=== PATIENT | female | born 1980 | race African-American/Black ===

== ENCOUNTER 2016-12-11 12:25 | Inpatient (IN) | payer OTHER ==
[~2016-12-11] VITALS: Ht 170.2 cm; Wt 86.6 kg
[2016-12-11 15:08] LABS: BILIRUBIN,URINE NEGATIVE (NEG); GLUCOSE,URINE NEGATIVE (NEG); NITRITE,URINE NEGATIVE (NEG); PROTEIN,URINE NEGATIVE (NEG-TRACE); UROBILINOGEN,URINE 0.2 mg/dL (0.2 mg/dL)
[2016-12-11 15:17] LABS: BACTERIA,URINE MODERATE /HPF (0-FEW); SQUAMOUS EPITHELIAL CELL,UR MANY /LPF
[2016-12-11 15:29] LABS: BASO % 1 % (0-3); EOS % 2 % (0-3); HEMATOCRIT 24.4 % (36.0-47.0); HEMOGLOBIN 7.3 g/dL (12.0-15.5); LYMPH # 2.3 x10^3/uL (1.0-4.8); LYMPH % 47 % (24-48); MEAN CORPUSCULAR HEMOGLOBIN 18 pg (25-35); MEAN CORPUSCULAR HGB CONC 30 g/dL (31-37); MEAN CORPUSCULAR VOLUME 61 fL (79-100); MONO % 11 % (0-9); NEUT % 39 % (31-73); PLATELET COUNT 351 x10^3/uL (140-400); RED BLOOD COUNT 4.03 x10^6/uL (3.50-5.40); RED CELL DISTRIBUTION WIDTH 19.5 % (11.5-14.5); WHITE BLOOD COUNT 4.8 x10^3/uL (4.0-11.0)
[2016-12-11 15:37] LABS: CALCIUM 8.5 mg/dL (8.5-10.1); CREATININE 0.8 mg/dL (0.6-1.0); GFR 98.2; POTASSIUM 3.9 mmol/L (3.5-5.1)
[2016-12-11 15:43] LABS: ALBUMIN 3.8 g/dL (3.4-5.0); ALBUMIN/GLOBULIN RATIO 0.8 (1.0-1.7); TOTAL BILIRUBIN 0.7 mg/dL (0.2-1.0); TOTAL PROTEIN 8.4 g/dL (6.4-8.2)
[2016-12-11 15:54] LABS: PLT ESTIMATE ADEQUATE (ADEQUATE)
[2016-12-11 15:55] LABS: ANISOCYTOSIS SLIGHT; HYPOCHROMIA MARKED; MICROCYTOSIS MARKED; OVALOCYTES FEW; POIKILOCYTOSIS SLIGHT; TEAR DROP CELLS OCC
--- NOTE | 2016-12-11 16:10 | RAD ---
Pelvic ultrasound, 12/11/2016: History: Vaginal bleeding, abdominal pain Transabdominal and transvaginal scans were obtained. The central uterine echo complex is mildly thickened superiorly, measuring 16 mm in AP diameter on the transvaginal scans. The myometrium demonstrates increased vascularity. No intrauterine gestational sac is seen. The ovaries are of normal size. There are 2 small cysts in the left ovary, the largest of which measures 16 mm. There is blood flow in both ovaries. A small amount of free fluid is noted in the cul-de-sac. This amount of fluid can be on a physiologic basis. IMPRESSION: 1. Mild thickening of the central uterine echo complex with diagnostic considerations including endometrial hyperplasia, endometritis or an endometrial polyp. 2. Small left ovarian cyst. 3. Small amount of free fluid in the pelvis.
--- NOTE | 2016-12-11 16:46 | PHYS DOC ---
Past Medical History Past Medical History: Anemia, Hypertension, IBS Additional Past Medical Histor: PCOS Past Surgical History: Cholecystectomy, Tubal ligation Alcohol Use: Occasionally Additional Information: HEAVY DRINKER ON EVERY WEEKEND Drug Use: None Adult General Chief Complaint Chief Complaint: VAGINAL PROBLEM [facility] HPI Patient is a 36 year old female presents to the emergency department stating that she's been having abdominal pain for the last 3 or 4 days. She states today she's been passing some large amount of clots. She states that she was not sure whether the blood was actually coming from until she had contact the bathroom. Patient states she has a history of anemia and IBS. Patient states that she was seen by her primary care physician and was placed on medications for her IBS which has not helped with the abdominal pain or discomfort. She denies fever, chills, nausea or vomiting. She denies any diarrhea. Denies any urinary symptoms. Review of Systems Review of Systems Constitutional: Denies fever or chills [] Eyes: Denies change in visual acuity, redness, or eye pain [] HENT: Denies nasal congestion or sore throat [] Respiratory: Denies cough or shortness of breath [] Cardiovascular: No additional information not addressed in HPI [] GI: abdominal pain, denies nausea, vomiting, bloody stools or diarrhea [] : Denies dysuria or hematuria. C/o vaginal bleeding [] Musculoskeletal: back pain denies joint pain [] Integument: Denies rash or skin lesions [] Neurologic: Denies headache, focal weakness or sensory changes [] Endocrine: Denies polyuria or polydipsia [] Current Medications Current Medications Current Medications Medications (Trade) Dose Ordered Sig/[facility] Start Time Stop Time Status Last Admin Dose Admin Fentanyl Citrate (Fentanyl 2ml Vial) 50 mcg 1X ONCE 12/11/16 17:00 12/11/16 17:01 DC Ondansetron HCl (Zofran) 4 mg 1X ONCE 12/11/16 17:00 12/11/16 17:01 DC Allergies Allergies Allergies Coded Allergies Type Severity Reaction Last Updated Verified No Known Drug Allergies 03/02/14 No Physical Exam Physical Exam Constitutional: Well developed, well nourished, no acute distress, non-toxic appearance. [] HENT: Normocephalic, atraumatic, bilateral external ears normal, oropharynx moist, no oral exudates, nose normal. [] Eyes: PERRLA, EOMI, conjunctiva normal, no discharge. [] Neck: Normal range of motion, no tenderness, supple, no stridor. [] Cardiovascular:Heart rate regular rhythm, no murmur [] Lungs & Thorax: Bilateral breath sounds clear to auscultation [] Abdomen: Bowel sounds hypoactive, soft, no tenderness, no masses, no pulsatile masses. no rebound tenderness noted, no guarding noted Skin: Warm, dry, no erythema, no rash. [] Back: No tenderness Extremities: No tenderness, no cyanosis, no clubbing, ROM intact, no edema. [] Neurologic: Alert and oriented X 3, normal motor function, normal sensory function, no focal deficits noted. [] Psychologic: Affect normal, judgement normal, mood normal. [] Vaginal exam completed with culture sent. Patient with a minute amount of blood noted in the vaginal vault. Patient did have yellow brownish at discharge. Manual exam with bilateral adnexal tenderness as well as CMT. Exam completed with RN at bedside. Rectal exam completed with a hemoglobin of 7.3, exam completed with RN at bedside Current Patient Data Vital Signs Vital Signs Date Time Temp Pulse Resp B/P (MAP) Pulse Ox O2 Delivery O2 Flow Rate FiO2 12/11/16 13:45 97.8 89 20 145/90 (108) 100 97.8 Lab Values Laboratory Tests Test 12/11/16 12:51 12/11/16 13:40 12/11/16 15:16 12/11/16 16:30 POC Urine HCG, Qualitative Hcg negative (Negative) Urine Collection Type Unknown Urine Color Yellow Urine Clarity Clear Urine pH 7.0 Urine Specific [place] <=1.005 Urine Protein Negative mg/dL (NEG-TRACE) Urine Glucose (UA) Negative mg/dL (NEG) Urine Ketones (Stick) Negative mg/dL (NEG) Urine Blood Large (NEG) Urine Nitrite Negative (NEG) Urine Bilirubin Negative (NEG) Urine Urobilinogen Dipstick 0.2 mg/dL (0.2 mg/dL) Urine Leukocyte Esterase Small (NEG) Urine RBC 1-2 /HPF (0-2) Urine WBC 1-4 /HPF (0-4) Urine Squamous Epithelial Cells Many /LPF Urine Bacteria Moderate /HPF (0-FEW) White Blood Count 4.8 x10^3/uL (4.0-11.0) Red Blood Count 4.03 x10^6/uL (3.50-5.40) Hemoglobin 7.3 g/dL (12.0-15.5) L Hematocrit 24.4 % (36.0-47.0) L Mean Corpuscular Volume 61 fL (79-100) L Mean Corpuscular Hemoglobin 18 pg (25-35) L Mean Corpuscular Hemoglobin Concent 30 g/dL (31-37) L Red Cell Distribution Width 19.5 % (11.5-14.5) H Platelet Count 351 x10^3/uL (140-400) Neutrophils (%) (Auto) 39 % (31-73) Lymphocytes (%) (Auto) 47 % (24-48) Monocytes (%) (Auto) 11 % (0-9) H Eosinophils (%) (Auto) 2 % (0-3) Basophils (%) (Auto) 1 % (0-3) Neutrophils # (Auto) 1.9 x10^3uL (1.8-7.7) Lymphocytes # (Auto) 2.3 x10^3/uL (1.0-4.8) Monocytes # (Auto) 0.5 x10^3/uL (0.0-1.1) Eosinophils # (Auto) 0.1 x10^3/uL (0.0-0.7) Basophils # (Auto) 0.0 x10^3/uL (0.0-0.2) Platelet Estimate Adequate (ADEQUATE) Hypochromasia Marked Poikilocytosis Slight Anisocytosis Slight Microcytosis Marked Tear Drop Cells Occ Ovalocytes Few Sodium Level 141 mmol/L (136-145) Potassium Level 3.9 mmol/L (3.5-5.1) Chloride Level 106 mmol/L (98-107) Carbon Dioxide Level 27 mmol/L (21-32) Anion Gap 8 (6-14) Blood Urea Nitrogen 6 mg/dL (7-20) L Creatinine 0.8 mg/dL (0.6-1.0) Estimated GFR (Cockcroft-Gault) 98.2 BUN/Creatinine Ratio 8 (6-20) Glucose Level 91 mg/dL (70-99) Calcium Level 8.5 mg/dL (8.5-10.1) Total Bilirubin 0.7 mg/dL (0.2-1.0) Aspartate Amino Transferase (AST) 15 U/L (15-37) Alanine Aminotransferase (ALT) 23 U/L (14-59) Alkaline Phosphatase 57 U/L (46-116) Total Protein 8.4 g/dL (6.4-8.2) H Albumin 3.8 g/dL (3.4-5.0) Albumin/Globulin Ratio 0.8 (1.0-1.7) L Stool Occult Blood Positive (NEG) Laboratory Tests 12/11/16 15:16 Laboratory Tests 12/11/16 15:16 Microbiology 12/11/16 Wet Prep - Final, Complete EKG EKG [] Radiology/Procedures Radiology/Procedures [] Course & Med Decision Making Course & Med Decision Making Pertinent Labs and Imaging studies reviewed. (See chart for details) Provided patient with ultrasound report has having endometrial polyps, endometritis. Also provided patient with report that she has bacterial vaginosis , urinary tract infection. Patient was provided for results of her hemoglobin being 7.3. Patient does state she has a history of anemia. Patient does state she's lightheaded and dizzy. Patient is also requiring information provided to her multiple times for her to understand. [address] Lindsey in regards to admission for this patient with abdominal pain, Hgb 7.3 with patient having being light headed, with minimal blood noted in the vaginal area. Fecal occult positive. Patient with positive BV, UTI. Dr Lindsey is aware of ultrasound report and labs with no further recommendations provided. Patient admitted to hospital [] Dragon Disclaimer Dragon Disclaimer This electronic medical record was generated, in whole or in part, using a voice recognition dictation system. Departure Departure Impression: Primary Impression: Abdominal pain Additional Impressions: Anemia UTI (urinary tract infection) Bacterial vaginosis Disposition: ADMITTED INPATIENT Admitting Physician: Yuan Lindsey Condition: STABLE Referrals: KATALINA CHAN (PCP) Problem Qualifiers KT [employer] Dec 11, 2016 16:46
[2016-12-11 16:54] LABS: NEG OBC FOB NEG; POS OBC FOB POS
[2016-12-11] MEDS ORDERED: ONDANSETRON PF 4 MG/2 ML VIAL. IV ONE (17:00)
[2016-12-11] MEDS ORDERED: fentaNYL PF VIAL 100 MCG/2 ML VIAL IV ONE (17:00)
[2016-12-11] MEDS ORDERED: fentaNYL PF VIAL 100 MCG/2 ML VIAL IV PRN (17:15)
[2016-12-11] MEDS ORDERED: ONDANSETRON PF 4 MG/2 ML VIAL. IV PRN ×2 (17:15→18:00)
[2016-12-11] MEDS ORDERED: ACETAMINOPHEN 325 MG TABLET. PO PRN (18:00)
[2016-12-11] MEDS ORDERED: MORPHINE SULFATE 2 MG/ML DISP.SYRIN. IV PRN (18:00)
[2016-12-11] MEDS ORDERED: hydrALAZINE 20 MG/ML VIAL. IVP PRN (18:00)
[2016-12-11] MEDS ORDERED: DOCUSATE SODIUM 100 MG CAPSULE. PO PRN (18:00)
[2016-12-11] MEDS: metroNIDAZOLE 500 MG TABLET PO SCH (18:00)
--- NOTE | 2016-12-11 18:08 | PDOC1 ---
History and Physical Date of Admission Date of Admission 12/11/16 Identification/Chief Complaint Chief Complaint vaginal bleeding vs. rectal bleeding Problems: Source Source: Chart review, Patient History of Present Illness History of Present Illness HPI HPI Patient is a 36 year old female presents to the emergency department for rectal bleeding vs. vaginal bleeding. Pt is very anxious. She said she has been having lower abd pain for a few weeks , usually twice a week, 11/19, not related to eating or BM. She has IBS, for which her PCP prescribed dicyclomine and she denies any Constipation or diarrhea now. TOday, she was on toilet for BM, then notice large red blood clots in the toilet , around the stool. She said never had dark or blood stool before. She then urinated later, also noticed some blood when wipping it. SHe is not sure if the blood comes from vaginal or rectum. SHe was told she has anemia, but frustrated with her PCP who told her that they dont know why she is anemia and asked her to see a specialist. However, she cannot tell me jw gi or ob doc she was supposed to see and has an appt 3 weeks later. She has multiple vaginal either yeast or bacteria infection, c/o that her PCP didnot do PEp smear for 3 years. Her usual menstrual period is heavy, once a month, 7days, usually heavy for 5days. . She denies fever, chills, nausea or vomiting. She denies any diarrhea. Denies any urinary symptoms. Hb 7.3 in ER, pt feels weak, no tachycardia, dizzy or sob or chest pain. wet prep + clue cells. in ER, US pelvis showed : 1. Mild thickening of the central uterine echo complex with diagnostic considerations including endometrial hyperplasia, endometritis or an endometrial polyp. 2. Small left ovarian cyst. 3. Small amount of free fluid in the pelvis. Past Medical History Cardiovascular: HTN Past Surgical History Past Surgical History: Cholecystectomy, Tubal Ligation Family History Family History: Hypertension Social History Smoke: No ALCOHOL: social Drugs: None Current Problem List Problem List Problems Medical Problems: (1) Abdominal pain Status: Acute (2) Anemia Status: Acute (3) Bacterial vaginosis Status: Acute (4) UTI (urinary tract infection) Status: Acute Current Medications Current Medications Current Medications Medications (Trade) Dose Ordered Sig/[facility] Start Time Stop Time Status Last Admin Dose Admin Acetaminophen (Tylenol) 650 mg PRN Q6HRS PRN 12/11/16 18:00 UNV Ceftriaxone Sodium 1 gm/ Sodium Chloride 50 ml @ 100 mls/hr Q24H 12/12/16 18:00 Ceftriaxone Sodium 50 ml @ 100 mls/hr 1X ONCE 12/11/16 17:30 12/11/16 17:59 Docusate Sodium (Colace) 100 mg PRN DAILY PRN 12/11/16 18:00 UNV Fentanyl Citrate (Fentanyl 2ml Vial) 50 mcg PRN Q2HR PRN 12/11/16 17:15 12/12/16 17:14 Hydralazine HCl (Apresoline) 10 mg PRN Q4HRS PRN 12/11/16 18:00 UNV Metronidazole (Flagyl) 500 mg Q12HR 12/11/16 17:30 Morphine Sulfate 2 mg PRN Q2HR PRN 12/11/16 18:00 UNV Ondansetron HCl (Zofran) 4 mg PRN Q6HRS PRN 12/11/16 18:00 UNV Tramadol HCl (Ultram) 50 mg PRN Q6HRS PRN 12/11/16 18:00 UNV Allergies Allergies Allergies Coded Allergies Type Severity Reaction Last Updated Verified No Known Drug Allergies 03/02/14 No ROS Review of System CONSTITUTIONAL: No fever or chills EYES: No recent changes SKIN: No rash or itching CARDIOVASCULAR: No chest pain, syncope, palpitations, or edema RESPIRATORY: No SOB or cough GASTROINTESTINAL: No nausea, vomiting or abdominal pain NEUROLOGICAL: No headaches or weakness ENDOCRINE: No cold or heat intolerance GENITOURINARY: No urgency or frequency of urination MUSCULOSKELETAL: No back pain or joint pain LYMPHATICS: No enlarged lymph nodes PSYCHIATRIC: No anxiety or depression Physical Exam Physical Exam GEN.: No apparent distress. Alert and oriented. HEENT: Head is normocephalic, atraumatic NECK: Supple. LUNGS: Clear to auscultation. HEART: RRR, S1, S2 present. Peripheral pulses intact ABDOMEN: Soft, Positive bowel sounds. lower middle abd mild tenderness EXTREMITIES: Without any cyanosis. NEUROLOGIC: Normal speech, normal tone PSYCHIATRIC: Normal affect, normal mood. SKIN: No ulcerations Vitals Vitals Vital Signs Date Time Temp Pulse Resp B/P (MAP) Pulse Ox O2 Delivery O2 Flow Rate FiO2 12/11/16 13:45 97.8 89 20 145/90 (108) 100 97.8 Labs Labs Laboratory Tests Test 12/11/16 12:51 12/11/16 13:40 12/11/16 15:16 12/11/16 16:30 Bedside Urine HCG, Qualitative Hcg negative (Negative) Urine Collection Type Unknown Urine Color Yellow Urine Clarity Clear Urine pH 7.0 Urine Specific [place] <=1.005 Urine Protein Negative mg/dL (NEG-TRACE) Urine Glucose (UA) Negative mg/dL (NEG) Urine Ketones (Stick) Negative mg/dL (NEG) Urine Blood Large (NEG) Urine Nitrite Negative (NEG) Urine Bilirubin Negative (NEG) Urine Urobilinogen Dipstick 0.2 mg/dL (0.2 mg/dL) Urine Leukocyte Esterase Small (NEG) Urine RBC 1-2 /HPF (0-2) Urine WBC 1-4 /HPF (0-4) Urine Squamous Epithelial Cells Many /LPF Urine Bacteria Moderate /HPF (0-FEW) White Blood Count 4.8 x10^3/uL (4.0-11.0) Red Blood Count 4.03 x10^6/uL (3.50-5.40) Hemoglobin 7.3 g/dL (12.0-15.5) Hematocrit 24.4 % (36.0-47.0) Mean Corpuscular Volume 61 fL (79-100) Mean Corpuscular Hemoglobin 18 pg (25-35) Mean Corpuscular Hemoglobin Concent 30 g/dL (31-37) Red Cell Distribution Width 19.5 % (11.5-14.5) Platelet Count 351 x10^3/uL (140-400) Neutrophils (%) (Auto) 39 % (31-73) Lymphocytes (%) (Auto) 47 % (24-48) Monocytes (%) (Auto) 11 % (0-9) Eosinophils (%) (Auto) 2 % (0-3) Basophils (%) (Auto) 1 % (0-3) Neutrophils # (Auto) 1.9 x10^3uL (1.8-7.7) Lymphocytes # (Auto) 2.3 x10^3/uL (1.0-4.8) Monocytes # (Auto) 0.5 x10^3/uL (0.0-1.1) Eosinophils # (Auto) 0.1 x10^3/uL (0.0-0.7) Basophils # (Auto) 0.0 x10^3/uL (0.0-0.2) Platelet Estimate Adequate (ADEQUATE) Hypochromasia Marked Poikilocytosis Slight Anisocytosis Slight Microcytosis Marked Tear Drop Cells Occ Ovalocytes Few Sodium Level 141 mmol/L (136-145) Potassium Level 3.9 mmol/L (3.5-5.1) Chloride Level 106 mmol/L (98-107) Carbon Dioxide Level 27 mmol/L (21-32) Anion Gap 8 (6-14) Blood Urea Nitrogen 6 mg/dL (7-20) Creatinine 0.8 mg/dL (0.6-1.0) Estimated GFR (Cockcroft-Gault) 98.2 BUN/Creatinine Ratio 8 (6-20) Glucose Level 91 mg/dL (70-99) Calcium Level 8.5 mg/dL (8.5-10.1) Total Bilirubin 0.7 mg/dL (0.2-1.0) Aspartate Amino Transf (AST/SGOT) 15 U/L (15-37) Alanine Aminotransferase (ALT/SGPT) 23 U/L (14-59) Alkaline Phosphatase 57 U/L (46-116) Total Protein 8.4 g/dL (6.4-8.2) Albumin 3.8 g/dL (3.4-5.0) Albumin/Globulin Ratio 0.8 (1.0-1.7) Stool Occult Blood Positive (NEG) Laboratory Tests Test 12/11/16 12:51 12/11/16 13:40 12/11/16 15:16 12/11/16 16:30 Bedside Urine HCG, Qualitative Hcg negative (Negative) Urine Collection Type Unknown Urine Color Yellow Urine Clarity Clear Urine pH 7.0 Urine Specific [place] <=1.005 Urine Protein Negative mg/dL (NEG-TRACE) Urine Glucose (UA) Negative mg/dL (NEG) Urine Ketones (Stick) Negative mg/dL (NEG) Urine Blood Large (NEG) Urine Nitrite Negative (NEG) Urine Bilirubin Negative (NEG) Urine Urobilinogen Dipstick 0.2 mg/dL (0.2 mg/dL) Urine Leukocyte Esterase Small (NEG) Urine RBC 1-2 /HPF (0-2) Urine WBC 1-4 /HPF (0-4) Urine Squamous Epithelial Cells Many /LPF Urine Bacteria Moderate /HPF (0-FEW) White Blood Count 4.8 x10^3/uL (4.0-11.0) Red Blood Count 4.03 x10^6/uL (3.50-5.40) Hemoglobin 7.3 g/dL (12.0-15.5) Hematocrit 24.4 % (36.0-47.0) Mean Corpuscular Volume 61 fL (79-100) Mean Corpuscular Hemoglobin 18 pg (25-35) Mean Corpuscular Hemoglobin Concent 30 g/dL (31-37) Red Cell Distribution Width 19.5 % (11.5-14.5) Platelet Count 351 x10^3/uL (140-400) Neutrophils (%) (Auto) 39 % (31-73) Lymphocytes (%) (Auto) 47 % (24-48) Monocytes (%) (Auto) 11 % (0-9) Eosinophils (%) (Auto) 2 % (0-3) Basophils (%) (Auto) 1 % (0-3) Neutrophils # (Auto) 1.9 x10^3uL (1.8-7.7) Lymphocytes # (Auto) 2.3 x10^3/uL (1.0-4.8) Monocytes # (Auto) 0.5 x10^3/uL (0.0-1.1) Eosinophils # (Auto) 0.1 x10^3/uL (0.0-0.7) Basophils # (Auto) 0.0 x10^3/uL (0.0-0.2) Platelet Estimate Adequate (ADEQUATE) Hypochromasia Marked Poikilocytosis Slight Anisocytosis Slight Microcytosis Marked Tear Drop Cells Occ Ovalocytes Few Sodium Level 141 mmol/L (136-145) Potassium Level 3.9 mmol/L (3.5-5.1) Chloride Level 106 mmol/L (98-107) Carbon Dioxide Level 27 mmol/L (21-32) Anion Gap 8 (6-14) Blood Urea Nitrogen 6 mg/dL (7-20) Creatinine 0.8 mg/dL (0.6-1.0) Estimated GFR (Cockcroft-Gault) 98.2 BUN/Creatinine Ratio 8 (6-20) Glucose Level 91 mg/dL (70-99) Calcium Level 8.5 mg/dL (8.5-10.1) Total Bilirubin 0.7 mg/dL (0.2-1.0) Aspartate Amino Transf (AST/SGOT) 15 U/L (15-37) Alanine Aminotransferase (ALT/SGPT) 23 U/L (14-59) Alkaline Phosphatase 57 U/L (46-116) Total Protein 8.4 g/dL (6.4-8.2) Albumin 3.8 g/dL (3.4-5.0) Albumin/Globulin Ratio 0.8 (1.0-1.7) Stool Occult Blood Positive (NEG) VTE Prophylaxis Ordered VTE Prophylaxis Devices: Yes VTE Pharmacological Prophylaxi: No Assessment/Plan Assessment/Plan anemia, likely chronic from ob source lower abd pain, likely 2/2 ob source, bacterial vaginitis h/o yeast and bacterial vaginitis IBS, chronic htn US showed Mild thickening of the central uterine with ?endometrial hyperplasia , endometritis or an endometrial polyp. plan; ob consult anemia work up need home meds flagyl bid x7ds on ceftriaxone for now for possible UTI, fu ucx will do abd/pelvis CT w contrast pain control labs tmr gi consult ITZ REYES MD Dec 11, 2016 18:08
[2016-12-11] MEDS ORDERED: IOHEXOL 240 MG/ML 50ML VIAL. PO ONE (19:30)
[2016-12-11] MEDS ORDERED: IOHEXOL 300 MG/ML 75 ML VIAL IV ONE (19:30)
--- NOTE | 2016-12-11 19:45 | RAD ---
CT abdomen and pelvis with contrast History: Abdominal pain for one month, possible rectal bleeding Technique: After the administration of oral and intravenous contrast, CT imaging was performed of the abdomen and pelvis. Multiplanar images are reviewed. Exposure: One or more of the following individualized dose reduction techniques were utilized for this examination: 1. Automated exposure control 2. Adjustment of the mA and/or kV according to patient size 3. Use of iterative reconstruction technique. Comparison: None Findings: There is no significant abnormality of the visualized lung bases. There is no significant abnormality of the liver, spleen, pancreas, adrenal glands. Both kidneys enhance without hydronephrosis, mild right pelviectasis. There is likely small 3 mm nonobstructive left renal calculus. There has been cholecystectomy. There is no significant inflammatory change adjacent to the bowel. There is no evidence of bowel obstruction, free fluid, or free air. Normal appendix is visualized. There is some retained stool in the rectum. There are likely phleboliths in the left pelvis. There is likely left adnexal cyst up to 1.5 cm. Impression: 1. No significant acute abnormality is identified. There is retained stool in the rectum. There is probable small left adnexal cyst. 2. There is likely small nonobstructive left renal calculus Electronically signed by: Jose Armendariz MD (12/11/2016 7:41 PM) [facility]
[2016-12-11 20:31] VITALS: BP 147/81
[2016-12-12] VITALS (14 sets, daily range): BP systolic 116–136; BP diastolic 66–85
[2016-12-12] MEDS: traMADol 50 MG TABLET PO PRN ×2 (01:08→08:21)
--- NOTE | 2016-12-12 03:27 | ACF ---
Admission Forms Criteria URINARY COMPLICATIONS Clinical Indications for Inpatient Care (Place 'X' for any and all applicable criteria): Ongoing inpatient care may be indicated for urinary complications with ANY ONE of the following: [X]I. Urinary tract infection requiring inpatient care as indicated by ANY ONE of the following(8)(19)(20): [ ]a) Severe symptoms (eg, high fever, severe pain) [ ]b) Vomiting or dehydration requiring ongoing inpatient care [X]c) IV antibiotic needs that cannot be managed at lower level of care [ ]d) Hemodynamic instability [ ]e) Obstruction of collecting system by stone or tumor [ ]II. Urinary retention requiring drainage or surgery (3)(4)(5)(17)(18) [ ]III. Renal failure (Use Renal Failure Criteria for further information.) [ ]IV. Oliguria(30) [ ]V. Post obstructive diuresis requiring close monitoring of urine output and intravenous compensation for excessive fluid losses(33) Extended stay beyond goal length of stay for primary condition may be needed until ALL of the following are present(3)(4)(5)(8): [ ]a) Renal function (creatinine) at baseline, or daily decreases in creatinine consistent with renal function return [ ]b) Voiding adequately or with urinary catheter or percutaneous suprapubic tube and management regimen in place that is performable at lower level of care. [ ]c) Urine output adequate [ ]d) Fever absent or resolving [ ]e) Infection absent or treatable at next level of care The original [employer] content created by [employer] has been revised. The portions of the content which have been revised are identified through the use of italic text or in bold, and [facility] has neither reviewed nor approved the modified material. All other unmodified content is copyright [employer] [facility] [employer] Please see references footnoted in the original [employer] [facility] [employer] edition 2016 Admission Criteria Met?: Yes ASYA BENNETT Dec 12, 2016 03:27
[2016-12-12 04:31] LABS: BASO % 1 % (0-3); EOS % 6 % (0-3); HEMATOCRIT 23.3 % (36.0-47.0); LYMPH # 2.6 x10^3/uL (1.0-4.8); LYMPH % 47 % (24-48); MEAN CORPUSCULAR HEMOGLOBIN 18 pg (25-35); MEAN CORPUSCULAR HGB CONC 29 g/dL (31-37); MEAN CORPUSCULAR VOLUME 62 fL (79-100); MONO % 13 % (0-9); NEUT % 34 % (31-73); PLATELET COUNT 315 x10^3/uL (140-400); RED BLOOD COUNT 3.77 x10^6/uL (3.50-5.40); RED CELL DISTRIBUTION WIDTH 19.5 % (11.5-14.5); WHITE BLOOD COUNT 5.4 x10^3/uL (4.0-11.0)
[2016-12-12 04:37] LABS: HEMOGLOBIN 6.8 g/dL (12.0-15.5)
[2016-12-12 04:47] LABS: CALCIUM 8.2 mg/dL (8.5-10.1); CREATININE 0.9 mg/dL (0.6-1.0); GFR 85.7; POTASSIUM 3.6 mmol/L (3.5-5.1)
[2016-12-12 05:04] LABS: % SAT IRON 3 % (15-34); IRON,SERUM 13 ug/dL (50-170)
[2016-12-12] MEDS: metroNIDAZOLE 500 MG TABLET PO SCH (08:22)
--- NOTE | 2016-12-12 09:55 | PDOC ---
PROGRESS NOTES Chief Complaint Chief Complaint Vaginal bleed ASSESSMENT AND PLAN: 1. Vaginal bleed: poss endometriosis. (US: mild thickening of the central uterine with ?endometrial hyperplasia, endometritis or an endometrial polyp). DIRECTOR MOTION PICTURE consult, CT a/p 2. IBS: chronic. on dicyclomine. 3. Pelvic pain: likely 2/2 DIRECTOR MOTION PICTURE source. stop IV narcotics. tramadol, percocet PRN 4. Bacterial vaginosis: hx of yeast and bacterial vaginitis, recurrent. flagyl x7 days 5. Anemia: severe microcytic, labs c/w iron deficiency. suspect 2/2 menorrhagia (on her period currently). IV iron ordered. no need for transfusion 6. HTN: well controlled. continue home meds. monitor 7. "dirty" urine collection: stop Ceftriax History of Present Illness History of Present Illness anxious about ongoing issues. Vitals Vitals Vital Signs Date Time Temp Pulse Resp B/P (MAP) Pulse Ox O2 Delivery O2 Flow Rate FiO2 12/12/16 09:22 Room Air 12/12/16 09:15 98.3 83 18 116/66 98.3 12/12/16 05:18 94 Physical Exam General: Alert, Oriented X3, Cooperative, No acute distress Heart: Regular rate, Other (2/6 SANDY) Lungs: Clear Abdomen: Normal bowel sounds, Soft, Other (TTP RLQ) Extremities: No edema Skin: No rashes Labs LABS Laboratory Tests Test 12/11/16 12:51 12/11/16 13:40 12/11/16 15:16 12/11/16 16:30 Bedside Urine HCG, Qualitative Hcg negative (Negative) Urine Collection Type Unknown Urine Color Yellow Urine Clarity Clear Urine pH 7.0 Urine Specific [place] <=1.005 Urine Protein Negative mg/dL (NEG-TRACE) Urine Glucose (UA) Negative mg/dL (NEG) Urine Ketones (Stick) Negative mg/dL (NEG) Urine Blood Large (NEG) Urine Nitrite Negative (NEG) Urine Bilirubin Negative (NEG) Urine Urobilinogen Dipstick 0.2 mg/dL (0.2 mg/dL) Urine Leukocyte Esterase Small (NEG) Urine RBC 1-2 /HPF (0-2) Urine WBC 1-4 /HPF (0-4) Urine Squamous Epithelial Cells Many /LPF Urine Bacteria Moderate /HPF (0-FEW) White Blood Count 4.8 x10^3/uL (4.0-11.0) Red Blood Count 4.03 x10^6/uL (3.50-5.40) Hemoglobin 7.3 g/dL (12.0-15.5) Hematocrit 24.4 % (36.0-47.0) Mean Corpuscular Volume 61 fL (79-100) Mean Corpuscular Hemoglobin 18 pg (25-35) Mean Corpuscular Hemoglobin Concent 30 g/dL (31-37) Red Cell Distribution Width 19.5 % (11.5-14.5) Platelet Count 351 x10^3/uL (140-400) Neutrophils (%) (Auto) 39 % (31-73) Lymphocytes (%) (Auto) 47 % (24-48) Monocytes (%) (Auto) 11 % (0-9) Eosinophils (%) (Auto) 2 % (0-3) Basophils (%) (Auto) 1 % (0-3) Neutrophils # (Auto) 1.9 x10^3uL (1.8-7.7) Lymphocytes # (Auto) 2.3 x10^3/uL (1.0-4.8) Monocytes # (Auto) 0.5 x10^3/uL (0.0-1.1) Eosinophils # (Auto) 0.1 x10^3/uL (0.0-0.7) Basophils # (Auto) 0.0 x10^3/uL (0.0-0.2) Platelet Estimate Adequate (ADEQUATE) Hypochromasia Marked Poikilocytosis Slight Anisocytosis Slight Microcytosis Marked Tear Drop Cells Occ Ovalocytes Few Sodium Level 141 mmol/L (136-145) Potassium Level 3.9 mmol/L (3.5-5.1) Chloride Level 106 mmol/L (98-107) Carbon Dioxide Level 27 mmol/L (21-32) Anion Gap 8 (6-14) Blood Urea Nitrogen 6 mg/dL (7-20) Creatinine 0.8 mg/dL (0.6-1.0) Estimated GFR (Cockcroft-Gault) 98.2 BUN/Creatinine Ratio 8 (6-20) Glucose Level 91 mg/dL (70-99) Calcium Level 8.5 mg/dL (8.5-10.1) Total Bilirubin 0.7 mg/dL (0.2-1.0) Aspartate Amino Transf (AST/SGOT) 15 U/L (15-37) Alanine Aminotransferase (ALT/SGPT) 23 U/L (14-59) Alkaline Phosphatase 57 U/L (46-116) Total Protein 8.4 g/dL (6.4-8.2) Albumin 3.8 g/dL (3.4-5.0) Albumin/Globulin Ratio 0.8 (1.0-1.7) Stool Occult Blood Positive (NEG) Test 12/12/16 03:15 White Blood Count 5.4 x10^3/uL (4.0-11.0) Red Blood Count 3.77 x10^6/uL (3.50-5.40) Hemoglobin 6.8 g/dL (12.0-15.5) Hematocrit 23.3 % (36.0-47.0) Mean Corpuscular Volume 62 fL (79-100) Mean Corpuscular Hemoglobin 18 pg (25-35) Mean Corpuscular Hemoglobin Concent 29 g/dL (31-37) Red Cell Distribution Width 19.5 % (11.5-14.5) Platelet Count 315 x10^3/uL (140-400) Neutrophils (%) (Auto) 34 % (31-73) Lymphocytes (%) (Auto) 47 % (24-48) Monocytes (%) (Auto) 13 % (0-9) Eosinophils (%) (Auto) 6 % (0-3) Basophils (%) (Auto) 1 % (0-3) Neutrophils # (Auto) 1.9 x10^3uL (1.8-7.7) Lymphocytes # (Auto) 2.6 x10^3/uL (1.0-4.8) Monocytes # (Auto) 0.7 x10^3/uL (0.0-1.1) Eosinophils # (Auto) 0.3 x10^3/uL (0.0-0.7) Basophils # (Auto) 0.0 x10^3/uL (0.0-0.2) Sodium Level 140 mmol/L (136-145) Potassium Level 3.6 mmol/L (3.5-5.1) Chloride Level 106 mmol/L (98-107) Carbon Dioxide Level 27 mmol/L (21-32) Anion Gap 7 (6-14) Blood Urea Nitrogen 7 mg/dL (7-20) Creatinine 0.9 mg/dL (0.6-1.0) Estimated GFR (Cockcroft-Gault) 85.7 Glucose Level 89 mg/dL (70-99) Calcium Level 8.2 mg/dL (8.5-10.1) Iron Level 13 ug/dL (50-170) Total Iron Binding Capacity 434 ug/dL (250-450) Iron Saturation 3 % (15-34) Ferritin 4 ng/mL (8-252) YOVANI MUELLER MD Dec 12, 2016 09:55
[2016-12-12] MEDS ORDERED: DICYCLOMINE HCL 10 MG CAPSULE PO PRN (11:00)
[2016-12-12] MEDS ORDERED: IRON SUCROSE COMPLEX 500 MG in IV NORMAL SALINE 250ML 250 ML IV ONE (11:00)
[2016-12-12 11:18] LABS: FOLATE 7.43 ng/ml (3.2-20.0)
[2016-12-12] MEDS ORDERED: amLODIPine BESYLATE 5 MG TABLET PO SCH (11:30)
[2016-12-12] MEDS: oxyCODONE/APAP 5/325 1 TAB TABLET PO PRN ×2 (11:31→18:05)
--- NOTE | 2016-12-12 13:18 | PDOC2 ---
CONSULT Date of Consult Date of Consult DATE: 12/12/16 TIME: 13:10 Reason for Consult Reason for Consult: vaginal bleeding Referring Physician Referring Physician: Dr. Lindsey Identification/Chief Complaint Chief Complaint fatigue and vaginal bleeding. Problems: History of Present Illness Reason for Visit: 36 y/o presented to ED with c/o heavy vaginal bleeding and fatigue. She reports h/o heavy menses > 10 years. She has h/o BTL and Cholecystectomy. This is first time she has been hospitalized for severe bleeding. Past Medical History Cardiovascular: HTN Past Surgical History Past Surgical History: Cholecystectomy, Tubal Ligation Family History Family History: Hypertension Social History No ALCOHOL: social Drugs: None Current Problem List Problem List Problems Medical Problems: (1) Abdominal pain Status: Acute (2) Anemia Status: Acute (3) Bacterial vaginosis Status: Acute (4) UTI (urinary tract infection) Status: Acute Current Medications Current Medications Current Medications Fentanyl Citrate (Fentanyl 2ml Vial) 50 mcg 1X ONCE IV Last administered on 17:13; Start 12/11/16 at 17:00; Stop 12/11/16 at 17:01; Status DC Ondansetron HCl (Zofran) 4 mg 1X ONCE IV Last administered on 12/11/16 17:12; Start 12/11/16 at 17:00; Stop 12/11/16 at 17:01; Status DC Ceftriaxone Sodium 1 gm/ Sodium Chloride 50 ml @ 100 mls/hr Q24H IV ; Start 12/12/16 at 18:00; Stop 12/12/16 at 18:00; Status DC Metronidazole (Flagyl) 500 mg Q12HR PO Last administered on 12/12/16 08:22; Start 12/11/16 at 17:30 Ondansetron HCl (Zofran) 4 mg PRN Q8HRS PRN IV NAUSEA/VOMITING; Start 12/11/16 at 17:15; Stop 12/12/16 at 17:14 Fentanyl Citrate (Fentanyl 2ml Vial) 50 mcg PRN Q2HR PRN IV PAIN Last administered on 12/11/16 20:55; Start 12/11/16 at 17:15; Stop 12/12/16 at 09:51; Status DC Ceftriaxone Sodium 50 ml @ 100 mls/hr 1X ONCE IV Last administered on 17:57; Start 12/11/16 at 17:30; Stop 12/11/16 at 17:59; Status DC Acetaminophen (Tylenol) 650 mg PRN Q6HRS PRN PO FEVER Last administered on 01:07; Start 12/11/16 at 18:00 Ondansetron HCl (Zofran) 4 mg PRN Q6HRS PRN IV NAUSEA/VOMITING; Start 12/11/16 at 18:00 Morphine Sulfate 2 mg PRN Q2HR PRN IV PAIN; Start 12/11/16 at 18:00; Stop at 09:51; Status DC Tramadol HCl (Ultram) 50 mg PRN Q6HRS PRN PO PAIN Last administered on 08:21; Start 12/11/16 at 18:00 Hydralazine HCl (Apresoline) 10 mg PRN Q4HRS PRN IVP ELEVATED BP, SEE COMMENTS ; Start 12/11/16 at 18:00 Docusate Sodium (Colace) 100 mg PRN DAILY PRN PO CONSTIPATION; Start 12/11/16 at 18:00 Iohexol (Omnipaque 300 Mg/ml) 75 ml 1X ONCE IV Last administered on 12/11/16 19:31; Start 12/11/16 at 19:30; Stop 12/11/16 at 19:31; Status DC Iohexol (Omnipaque 240 Mg/ml) 50 ml 1X ONCE PO Last administered on 12/11/16 19:32; Start 12/11/16 at 19:30; Stop 12/11/16 at 19:31; Status DC Oxycodone/ Acetaminophen (Percocet 5/325) 1 tab PRN Q4HRS PRN PO PAIN Last administered on 12/12/16 11:31; Start 12/12/16 at 10:00 Iron Sucrose 500 mg/Sodium Chloride 275 ml @ 78.571 mls/ hr 1X ONCE IV Last administered on 12/12/16 11:30; Start 12/12/16 at 11:00; Stop 12/12/16 at 14:29 Amlodipine Besylate (Norvasc) 5 mg DAILY PO ; Start 12/12/16 at 11:30 Dicyclomine HCl (Bentyl) 10 mg PRN TID PRN PO abd pain; Start 12/12/16 at 11:00 Allergies Allergies: Coded Allergies: No Known Drug Allergies (Unverified , 03/02/14) ROS General: YES: Fatigue, No: Chills, Night Sweats, Malaise, Appetite, Other PSYCHOLOGICAL ROS: No: Anxiety, Behavioral Disorder, Concentration difficultie , Decreased libido, Depression, Disorientation, Hallucinations, Hostility, Irritablity, Memory difficulties, Mood Swings, Obsessive thoughts, Physical abuse, Sexual abuse, Sleep disturbances, Suicidal ideation, Other Eyes: No Blurry vision, No Decreased vision, No Double vision, No Dry eyes, No Excessive tearing, No Eye Pain, No Itchy Eyes, No Loss of vision, No Photophobia , No Scotomata, No Uses contacts, No Uses glasses, No Other HEENT: YES: Heacaches, No: Visual Changes, Hearing change, Nasal congestion, Nasal discharge, Oral lesions, Sinus pain, Sore Throat, Epistaxis, Sneezing, Snoring, Tinnitus, Vertigo, Vocal changes, Other ALLERGY AND IMMUNOLOGY: No: Hives, Insect Bite Sensitivity, Itchy/Watery Eyes, Nasal Congestion, Post Nasal Drip, Seasonal Allergies, Other Hematological and Lymphatic: No: Bleeding Problems, Blood Clots, Blood Transfusions, Brusing, Night Sweats, Pallor, Swollen Lymph Nodes, Other ENDOCRINE: No: Breast Changes, Galactorrhea, Hair Pattern Changes, Hot Flashes , Malaise/lethargy, Mood Swings, Palpitations, Polydipsia/polyuria, Skin Changes , Temperature Intolerance, Unexpected Weight Changes, Other Breast: No New/Changing Breast Lumps, No Nipple changes, No Nipple discharge, No Other Respiratory: No: Cough, Hemoptysis, Orthopnea, Pleuritic Pain, Shortness of breath, SOB with excertion, Sputum Changes, Stridor, Tachypnea, Wheezing, Other Cardiovascular: No Chest Pain, No Palpitations, No Orthopnea, No Paroxysmal Noc. Dyspnea, No Edema, No Lt Headedness, No Other Gastrointestinal: Yes Abdominal Pain, No Nausea, No Vomiting, No Diarrhea, No Constipation, No Melena, No Hematochezia, No Other Genitourinary: No Dysuria, No Frequency, No Incontinence, No Hematuria, No Retention, No Discharge, No Urgency, No Pain, No Flank Pain, No Other, No , No , No , No , No , No , No Musculoskeletal: No Gait Disturbance, No Joint Pain, No Joint Stiffness, No Joint Swelling, No Muscle Pain, No Muscular Weakness, No Pain In:, No Swelling In:, No Other Neurological: No Behavorial Changes, No Bowel/Bladder ControlChng, No Confusion , No Dizziness, No Gait Disturbance, No Headaches, No Impaired Coord/balance, No Memory Loss, No Numbness/Tingling, No Seizures, No Speech Problems, No Tremors, No Visual Changes, No Weakness, No Other Physical Exam General: Alert, Oriented X3, Cooperative HEENT: Atraumatic Lungs: Clear to auscultation Heart: Regular rate Abdomen: Normal bowel sounds, Soft, No masses Psych/Mental Status: Mental status NL MUSCULOSKELETAL: No joint tenderness Vitals VITALS Vital Signs Date Time Temp Pulse Resp B/P (MAP) Pulse Ox O2 Delivery O2 Flow Rate FiO2 12/12/16 11:31 18 12/12/16 10:15 98.0 72 120/70 98.0 12/12/16 09:22 Room Air 12/12/16 05:18 94 Labs Labs Laboratory Tests Test 12/11/16 12:51 12/11/16 13:40 12/11/16 15:16 12/11/16 16:30 Bedside Urine HCG, Qualitative Hcg negative (Negative) Urine Collection Type Unknown Urine Color Yellow Urine Clarity Clear Urine pH 7.0 Urine Specific [place] <=1.005 Urine Protein Negative mg/dL (NEG-TRACE) Urine Glucose (UA) Negative mg/dL (NEG) Urine Ketones (Stick) Negative mg/dL (NEG) Urine Blood Large (NEG) Urine Nitrite Negative (NEG) Urine Bilirubin Negative (NEG) Urine Urobilinogen Dipstick 0.2 mg/dL (0.2 mg/dL) Urine Leukocyte Esterase Small (NEG) Urine RBC 1-2 /HPF (0-2) Urine WBC 1-4 /HPF (0-4) Urine Squamous Epithelial Cells Many /LPF Urine Bacteria Moderate /HPF (0-FEW) White Blood Count 4.8 x10^3/uL (4.0-11.0) Red Blood Count 4.03 x10^6/uL (3.50-5.40) Hemoglobin 7.3 g/dL (12.0-15.5) Hematocrit 24.4 % (36.0-47.0) Mean Corpuscular Volume 61 fL (79-100) Mean Corpuscular Hemoglobin 18 pg (25-35) Mean Corpuscular Hemoglobin Concent 30 g/dL (31-37) Red Cell Distribution Width 19.5 % (11.5-14.5) Platelet Count 351 x10^3/uL (140-400) Neutrophils (%) (Auto) 39 % (31-73) Lymphocytes (%) (Auto) 47 % (24-48) Monocytes (%) (Auto) 11 % (0-9) Eosinophils (%) (Auto) 2 % (0-3) Basophils (%) (Auto) 1 % (0-3) Neutrophils # (Auto) 1.9 x10^3uL (1.8-7.7) Lymphocytes # (Auto) 2.3 x10^3/uL (1.0-4.8) Monocytes # (Auto) 0.5 x10^3/uL (0.0-1.1) Eosinophils # (Auto) 0.1 x10^3/uL (0.0-0.7) Basophils # (Auto) 0.0 x10^3/uL (0.0-0.2) Platelet Estimate Adequate (ADEQUATE) Hypochromasia Marked Poikilocytosis Slight Anisocytosis Slight Microcytosis Marked Tear Drop Cells Occ Ovalocytes Few Sodium Level 141 mmol/L (136-145) Potassium Level 3.9 mmol/L (3.5-5.1) Chloride Level 106 mmol/L (98-107) Carbon Dioxide Level 27 mmol/L (21-32) Anion Gap 8 (6-14) Blood Urea Nitrogen 6 mg/dL (7-20) Creatinine 0.8 mg/dL (0.6-1.0) Estimated GFR (Cockcroft-Gault) 98.2 BUN/Creatinine Ratio 8 (6-20) Glucose Level 91 mg/dL (70-99) Calcium Level 8.5 mg/dL (8.5-10.1) Total Bilirubin 0.7 mg/dL (0.2-1.0) Aspartate Amino Transf (AST/SGOT) 15 U/L (15-37) Alanine Aminotransferase (ALT/SGPT) 23 U/L (14-59) Alkaline Phosphatase 57 U/L (46-116) Total Protein 8.4 g/dL (6.4-8.2) Albumin 3.8 g/dL (3.4-5.0) Albumin/Globulin Ratio 0.8 (1.0-1.7) Stool Occult Blood Positive (NEG) Test 12/12/16 03:15 White Blood Count 5.4 x10^3/uL (4.0-11.0) Red Blood Count 3.77 x10^6/uL (3.50-5.40) Hemoglobin 6.8 g/dL (12.0-15.5) Hematocrit 23.3 % (36.0-47.0) Mean Corpuscular Volume 62 fL (79-100) Mean Corpuscular Hemoglobin 18 pg (25-35) Mean Corpuscular Hemoglobin Concent 29 g/dL (31-37) Red Cell Distribution Width 19.5 % (11.5-14.5) Platelet Count 315 x10^3/uL (140-400) Neutrophils (%) (Auto) 34 % (31-73) Lymphocytes (%) (Auto) 47 % (24-48) Monocytes (%) (Auto) 13 % (0-9) Eosinophils (%) (Auto) 6 % (0-3) Basophils (%) (Auto) 1 % (0-3) Neutrophils # (Auto) 1.9 x10^3uL (1.8-7.7) Lymphocytes # (Auto) 2.6 x10^3/uL (1.0-4.8) Monocytes # (Auto) 0.7 x10^3/uL (0.0-1.1) Eosinophils # (Auto) 0.3 x10^3/uL (0.0-0.7) Basophils # (Auto) 0.0 x10^3/uL (0.0-0.2) Sodium Level 140 mmol/L (136-145) Potassium Level 3.6 mmol/L (3.5-5.1) Chloride Level 106 mmol/L (98-107) Carbon Dioxide Level 27 mmol/L (21-32) Anion Gap 7 (6-14) Blood Urea Nitrogen 7 mg/dL (7-20) Creatinine 0.9 mg/dL (0.6-1.0) Estimated GFR (Cockcroft-Gault) 85.7 Glucose Level 89 mg/dL (70-99) Calcium Level 8.2 mg/dL (8.5-10.1) Iron Level 13 ug/dL (50-170) Total Iron Binding Capacity 434 ug/dL (250-450) Iron Saturation 3 % (15-34) Ferritin 4 ng/mL (8-252) Vitamin B12 Level 381 pg/mL (247-911) Serum Folate 7.43 ng/ml (3.2-20.0) Laboratory Tests Test 12/11/16 13:40 12/11/16 15:16 12/11/16 16:30 12/12/16 03:15 Urine Collection Type Unknown Urine Color Yellow Urine Clarity Clear Urine pH 7.0 Urine Specific [place] <=1.005 Urine Protein Negative mg/dL (NEG-TRACE) Urine Glucose (UA) Negative mg/dL (NEG) Urine Ketones (Stick) Negative mg/dL (NEG) Urine Blood Large (NEG) Urine Nitrite Negative (NEG) Urine Bilirubin Negative (NEG) Urine Urobilinogen Dipstick 0.2 mg/dL (0.2 mg/dL) Urine Leukocyte Esterase Small (NEG) Urine RBC 1-2 /HPF (0-2) Urine WBC 1-4 /HPF (0-4) Urine Squamous Epithelial Cells Many /LPF Urine Bacteria Moderate /HPF (0-FEW) White Blood Count 4.8 x10^3/uL (4.0-11.0) 5.4 x10^3/uL (4.0-11.0) Red Blood Count 4.03 x10^6/uL (3.50-5.40) 3.77 x10^6/uL (3.50-5.40) Hemoglobin 7.3 g/dL (12.0-15.5) 6.8 g/dL (12.0-15.5) Hematocrit 24.4 % (36.0-47.0) 23.3 % (36.0-47.0) Mean Corpuscular Volume 61 fL (79-100) 62 fL (79-100) Mean Corpuscular Hemoglobin 18 pg (25-35) 18 pg (25-35) Mean Corpuscular Hemoglobin Concent 30 g/dL (31-37) 29 g/dL (31-37) Red Cell Distribution Width 19.5 % (11.5-14.5) 19.5 % (11.5-14.5) Platelet Count 351 x10^3/uL (140-400) 315 x10^3/uL (140-400) Neutrophils (%) (Auto) 39 % (31-73) 34 % (31-73) Lymphocytes (%) (Auto) 47 % (24-48) 47 % (24-48) Monocytes (%) (Auto) 11 % (0-9) 13 % (0-9) Eosinophils (%) (Auto) 2 % (0-3) 6 % (0-3) Basophils (%) (Auto) 1 % (0-3) 1 % (0-3) Neutrophils # (Auto) 1.9 x10^3uL (1.8-7.7) 1.9 x10^3uL (1.8-7.7) Lymphocytes # (Auto) 2.3 x10^3/uL (1.0-4.8) 2.6 x10^3/uL (1.0-4.8) Monocytes # (Auto) 0.5 x10^3/uL (0.0-1.1) 0.7 x10^3/uL (0.0-1.1) Eosinophils # (Auto) 0.1 x10^3/uL (0.0-0.7) 0.3 x10^3/uL (0.0-0.7) Basophils # (Auto) 0.0 x10^3/uL (0.0-0.2) 0.0 x10^3/uL (0.0-0.2) Platelet Estimate Adequate (ADEQUATE) Hypochromasia Marked Poikilocytosis Slight Anisocytosis Slight Microcytosis Marked Tear Drop Cells Occ Ovalocytes Few Sodium Level 141 mmol/L (136-145) 140 mmol/L (136-145) Potassium Level 3.9 mmol/L (3.5-5.1) 3.6 mmol/L (3.5-5.1) Chloride Level 106 mmol/L (98-107) 106 mmol/L (98-107) Carbon Dioxide Level 27 mmol/L (21-32) 27 mmol/L (21-32) Anion Gap 8 (6-14) 7 (6-14) Blood Urea Nitrogen 6 mg/dL (7-20) 7 mg/dL (7-20) Creatinine 0.8 mg/dL (0.6-1.0) 0.9 mg/dL (0.6-1.0) Estimated GFR (Cockcroft-Gault) 98.2 85.7 BUN/Creatinine Ratio 8 (6-20) Glucose Level 91 mg/dL (70-99) 89 mg/dL (70-99) Calcium Level 8.5 mg/dL (8.5-10.1) 8.2 mg/dL (8.5-10.1) Total Bilirubin 0.7 mg/dL (0.2-1.0) Aspartate Amino Transf (AST/SGOT) 15 U/L (15-37) Alanine Aminotransferase (ALT/SGPT) 23 U/L (14-59) Alkaline Phosphatase 57 U/L (46-116) Total Protein 8.4 g/dL (6.4-8.2) Albumin 3.8 g/dL (3.4-5.0) Albumin/Globulin Ratio 0.8 (1.0-1.7) Stool Occult Blood Positive (NEG) Iron Level 13 ug/dL (50-170) Total Iron Binding Capacity 434 ug/dL (250-450) Iron Saturation 3 % (15-34) Ferritin 4 ng/mL (8-252) Vitamin B12 Level 381 pg/mL (247-911) Serum Folate 7.43 ng/ml (3.2-20.0) Assessment/Plan Assessment/Plan A: Menorrhagia Severe chronic blood loss anemia P: Pt. received 1 Unit PRBC's and now receiving iron IV. Pelvic sono indicated small ovarian cyst with mildly enlarged uterus. Recommend Provera BID. F/u in clinic in 2 weeks. Thank you for consult. LALA GRANGER Jr, MD Dec 12, 2016 13:18
--- NOTE | 2016-12-12 13:19 | DISCH ---
DISCHARGE INSTRUCTIONS Condition on Discharge Condition on Discharge: Stable Activity After Discharge Activity Instructions for Disc: Activity as tolerated Lifting Instructions after Dis: No heavy lifting Driving Instructions after Dis: Do not drive today Diet after Discharge Diet after Discharge: Regular Contacting the DRV[facility]ctor after DC Call your doctor for: Concerns you may have Follow-Up Follow up with: Dr. Middleton in 2 weeks. LALA MIDDLETON Jr, MD Dec 12, 2016 13:19
[2016-12-12] MEDS ORDERED: OXYC-323 PO (13:25)
[2016-12-12] MEDS ORDERED: MEDR10TA PO (13:25)
[2016-12-12 16:46] LABS: HEMATOCRIT 26.5 % (36.0-47.0); HEMOGLOBIN 7.9 g/dL (12.0-15.5)
--- NOTE | 2016-12-12 22:29 | DS ---
DATE OF DISCHARGE: 12/12/2016 CHIEF COMPLAINT: Abdominal pain. HOSPITAL COURSE: The patient is a 36-year-old woman who presented to the Emergency Room with a persistent pelvic/lower abdominal pain associated with her menses. She also carries a history of IBS and did not feel sure that she would not be bleeding from her rectum as well. She was therefore seen by [facility] and she was ____ with ultrasound showing potential for endometriosis. Given her current circumstances, she was deemed safe for discharge to home and follow up with ____ on Provera to help with the bleeding. She was also given a prescription of Percocet. Her IBD was actually well controlled and her home medication of dicyclomine was continued. PHYSICAL EXAMINATION: Please refer to note from same day. DISCHARGE DIAGNOSES: Menorrhagia, possible endometriosis. DISCHARGE DISPOSITION: To home. DISCHARGE CONDITION: Improved. DISCHARGE MEDICATIONS: Please refer to MAR. DISCHARGE INSTRUCTIONS: The patient will follow up with ____ in 1 week. YOVANI MUELLER MD DR: UR/nts JOB#: [id number] / [id number]
== END 2016-12-12 18:30 | disposition home or self-care (01) | DRG 758 ==
LOC: ER 12:25 → 3 NORTH 16:46
PROVIDERS: ADMIT Internal Medicine; ATTEND Internal Medicine
PROC: 30233N1 Transfusion of Nonautologous Red Blood Cells into Peripheral Vein, Percutaneous Approach (ICD-10-PCS; principal; 2016-12-12)
DX: N76.0 Acute vaginitis (principal); N39.0 Urinary tract infection, site not specified; N80.0 Endometriosis of uterus; N83.202 Unspecified ovarian cyst, left side; N92.0 Excessive and frequent menstruation with regular cycle; D50.0 Iron deficiency anemia secondary to blood loss (chronic); K58.9 Irritable bowel syndrome, unspecified; N85.2 Hypertrophy of uterus; N83.209 Unspecified ovarian cyst, unspecified side; I10 Essential (primary) hypertension; Z82.49 Family history of ischemic heart disease and other diseases of the circulatory system; Z90.49 Acquired absence of other specified parts of digestive tract; Z98.51 Tubal ligation status; Z72.89 Other problems related to lifestyle
CPT/HCPCS: 36415; 74177; 76830; 76856; 80048; 80053; 81001; 81025; 82274; 82607; 82728; 82746; 83540; 83550; 85007; 85014; 85018; 85027; 86850; 86900; 86901; 86920; 87086; 87491; 87591; 96365; 96375; J0690; J1756; J2405; J3010; J7050; P9016; Q0111; Q9966; Q9967; 99285-25; J7030

== ENCOUNTER 2017-02-14 06:16 | Observation (INO) | payer OTHER ==
[2017-02-14] VITALS (8 sets, daily range): BP systolic 109–124; BP diastolic 64–77
[~2017-02-14] VITALS: Ht 170.2 cm; Wt 88.9 kg
[~2017-02-14 06:16] MED LIST: AMLO5TAB2 PO; BUPIVACAINE-EPI 0.25%-1:200000 MPF 30 ML VIAL. ONE; DICY10CA3 PO; ESTROGENS, CONJ VAGINAL CREAM 30GM TUBE. ONE; LIDOCAINE 1%/EPI 1:100,000 20 ML VIAL. ONE; MEDR10TA PO; OXYC-323 PO; SURGICEL HEMOSTAT 4X8 EACH. ONE
[2017-02-14] MEDS ORDERED: LIDOCAINE 1% PF 2 ML VIAL. ID PRN (07:00)
[2017-02-14] MEDS ORDERED: HYDROmorphone 2 MG/ML VIAL IV PRN (07:00)
[2017-02-14] MEDS ORDERED: fentaNYL PF VIAL 100 MCG/2 ML VIAL IV PRN (07:00)
[2017-02-14] MEDS ORDERED: ONDANSETRON PF 4 MG/2 ML VIAL. IV PRN ×2 (07:00→10:15)
[2017-02-14] MEDS ORDERED: MORPHINE SULFATE 4 MG/ML DISP.SYRIN. IV PRN (07:00)
[2017-02-14] MEDS ORDERED: IV RINGERS,LACTATED 1000ML 1,000 ML IV SCH (07:00)
[2017-02-14] MEDS ORDERED: PROCHLORPERAZINE 10 MG/2 ML VIAL. IV PRN ×2 (07:00→10:15)
[2017-02-14 07:02] LABS: NEG OBC UR NEG; POS OBC UR POS
[2017-02-14] MEDS ORDERED: LIDOCAINE 2% PF Vial for OR 5 ML VIAL. ONE (07:02)
[2017-02-14] MEDS ORDERED: PROPOFOL 20 ML IV ONE (07:02)
[2017-02-14] MEDS ORDERED: ROCURONIUM 100 MG/10 ML VIAL. ONE (07:02)
[2017-02-14] MEDS ORDERED: SUCCINYLCHOLINE 200 MG/10 ML VIAL. ONE (07:02)
[2017-02-14] MEDS ORDERED: fentaNYL PF VIAL 100 MCG/2 ML VIAL ONE ×2 (07:02→09:23)
[2017-02-14 07:11] LABS: BASO % 1 % (0-3); EOS % 3 % (0-3); HEMATOCRIT 36.6 % (36.0-47.0); HEMOGLOBIN 11.7 g/dL (12.0-15.5); LYMPH # 1.9 x10^3/uL (1.0-4.8); LYMPH % 40 % (24-48); MEAN CORPUSCULAR HEMOGLOBIN 26 pg (25-35); MEAN CORPUSCULAR HGB CONC 32 g/dL (31-37); MEAN CORPUSCULAR VOLUME 81 fL (79-100); MONO % 11 % (0-9); NEUT % 45 % (31-73); PLATELET COUNT 316 x10^3/uL (140-400); RED BLOOD COUNT 4.55 x10^6/uL (3.50-5.40); RED CELL DISTRIBUTION WIDTH 25.5 % (11.5-14.5); WHITE BLOOD COUNT 4.7 x10^3/uL (4.0-11.0)
[2017-02-14] MEDS ORDERED: DESFLURANE 61 TO 120 MINUTES IH ONE (08:33)
[2017-02-14] MEDS ORDERED: DEXAMETHASONE SOD PHOS 20 MG/5 ML VIAL. ONE (08:33)
[2017-02-14 08:39] LABS: ANISOCYTOSIS MOD; PLT ESTIMATE ADEQUATE (ADEQUATE)
[2017-02-14] MEDS ORDERED: NEOSTIGMINE 10 MG/10 ML VIAL. ONE (08:46)
[2017-02-14] MEDS ORDERED: ONDANSETRON PF 4 MG/2 ML VIAL. ONE (08:46)
[2017-02-14] MEDS ORDERED: GLYCOPYRROLATE 1 MG/5 ML VIAL. ONE (08:47)
--- NOTE | 2017-02-14 10:09 | PDOC ---
BRIEF OPERATIVE NOTE Pre-Op Diagnosis 1. Dysmenorrhea 2. Menorrhagia 3. ROV Cyst Post-Op Diagnosis Same + Fibroids Procedure Performed TLH & RSO via [facility] Surgeon Dr. Middleton Anesthesia Type: General Blood Loss 100 ml Specimens Obtained uterus, cervix, nicole. fallopian tubes and ROV Findings enlarged, fibroid uterus, ROV cyst 3 cm size, nicole. fallopian tubes with paratubal cyst; nml MINDI Complications none LALA MIDDLETON Jr, MD Feb 14, 2017 10:09
[2017-02-14] MEDS ORDERED: DEXTROSE 50% 25 GM / 50ML DISP.SYRIN. IV PRN (10:15)
[2017-02-14] MEDS ORDERED: diphenhydrAMINE HCL 25 MG CAPSULE PO PRN (10:15)
[2017-02-14] MEDS ORDERED: ZOLPIDEM 5 MG TABLET. PO PRN (10:15)
[2017-02-14] MEDS ORDERED: 0.9 % SODIUM CHLORIDE 10 ML DISP.SYRIN. IV PRN (10:15)
[2017-02-14] MEDS ORDERED: diphenhydrAMINE 50 MG/ML VIAL IV PRN (10:15)
[2017-02-14] MEDS ORDERED: SIMETHICONE 80 MG TAB.CHEW PO PRN (10:15)
[2017-02-14] MEDS ORDERED: CALCIUM CARBONATE 500 MG TAB.CHEW PO PRN (10:15)
[2017-02-14] MEDS ORDERED: KETOROLAC 30 MG/ML INJ. IV PRN (10:15)
[2017-02-14] MEDS: fentaNYL PF VIAL 100 MCG/2 ML VIAL IV PRN ×2 (10:22→10:37)
--- NOTE | 2017-02-14 10:44 | OP ---
DATE OF SURGERY: 02/14/2017 PREOPERATIVE DIAGNOSES: 1. Dysmenorrhea. 2. Menorrhagia. 3. Right ovarian cyst. POSTOPERATIVE DIAGNOSES: 1. Dysmenorrhea. 2. Menorrhagia. 3. Right ovarian cyst. 4. Fibroids. PROCEDURE: TLH RSO via [facility] robot. SURGEON: Lala Middleton M.D. PIPE STRAIGHTENER: Alisa. ESTIMATED BLOOD LOSS: 100 mL. COMPLICATIONS: None. ANESTHESIA: GETA. FINDINGS: Enlarged fibroid uterus, right ovarian cyst about 3 cm size. Bilateral fallopian tubes appear tubal cyst, normal left ovary. SUMMARY: A 37-year-old female with long history of menorrhagia, dysmenorrhea and right ovarian cyst requiring hysterectomy. The patient was counseled on risks, benefits and expectations TLH RSO. Risks, benefits and expectations and voiced a clear understanding to proceed. DESCRIPTION OF PROCEDURE: The patient was taken to surgery suite and placed in dorsal lithotomy position. She was prepped with ChloraPrep for abdominal prep and Betadine for vaginal prep. After adequate anesthesia, weighted speculum and curved [place] placed vaginally and anterior lip of the cervix grasped with a single tooth tenaculum. The Hannah uterine manipulator was then placed. Single tooth tenaculum and weighted speculum and curved [place] were removed. Attention was now placed on abdomen. Small transverse skin incision made just below the umbilicus with a scalpel. The Veress needle was then placed through the infraumbilical incision site. The abdomen was allowed to insufflate up to 1-1/2 liters of CO2 gas. The Veress needle was then removed. The 8 mm camera port was then placed. The camera was positioned. The uterus appeared enlarged with multiple fibroids. The right ovary was visualized and demonstrated a 3 cm cyst both fallopian tubes appear tubal cyst. Left ovary appeared normal. An incision was made in the left and right lower quadrant with a scalpel, in which 8 mm trocars were placed. An accessory port was placed in the left upper quadrant, at which, a scalpel was utilized to make an incision. A 5 mm port was placed. The robot was then docked in normal fashion. I then proceeded to the console. With the aid of the bipolar fenestration and the vessel sealer, the right round ligament was coagulated and dissected. The right infundibulopelvic ligament was coagulated and dissected. The right broad ligament was coagulated and dissected down to and including the right uterine artery. Bladder flap was created using the vessel sealer and blunt dissection. The left round ligament was then coagulated and dissected. The left distal ends of the fallopian tube was coagulated and dissected and removed with the vessel sealer. The left broad ligament, left uterine artery was coagulated and dissected. A colpotomy was then performed with the spatula at the level of the vaginal ring. The cervix, uterus, bilateral fallopian tubes and right ovary were then removed. The vaginal cuff was reapproximated using V-Loc suture in a running fashion. Suction irrigation was utilized to verify good hemostasis. Small amount of normal saline was left in posterior cul-de-sac. The robot was then undocked. The trocars removed under direct visualization. The abdomen was allowed to deflate as much as possible along with mechanical manipulation. The skin incisions were reapproximated using 4-0 Vicryl suture in subcuticular manner. A 0.25% Marcaine with epinephrine was injected at each incision site. Moist vaginal packing was placed vaginally. The patient tolerated the procedure well and was taken to recovery room in stable condition. Sponge and needle count correct x 3. The ureters were visualized bilaterally and functioning well. LALA MIDDLETON MD DR: DWAIN/april JOB#: [id number] / [id number]
[2017-02-14] MEDS: GABAPENTIN 300 MG CAPSULE. PO SCH (13:34)
[2017-02-14] MEDS: oxyCODONE/APAP 5/325 1 TAB TABLET PO PRN ×2 (13:34→19:54)
[2017-02-15] MEDS ORDERED: BENZOCAINE/MENTHOL LOZENGE. PO PRN (00:15)
[2017-02-15] MEDS: GABAPENTIN 300 MG CAPSULE. PO SCH (00:19)
[2017-02-15] MEDS: oxyCODONE/APAP 5/325 1 TAB TABLET PO PRN ×2 (01:20→08:17)
[2017-02-15 05:49] LABS: BASO % 0 % (0-3); EOS % 0 % (0-3); HEMATOCRIT 31.1 % (36.0-47.0); LYMPH # 1.9 x10^3/uL (1.0-4.8); LYMPH % 22 % (24-48); MEAN CORPUSCULAR HEMOGLOBIN 25 pg (25-35); MEAN CORPUSCULAR HGB CONC 32 g/dL (31-37); MEAN CORPUSCULAR VOLUME 79 fL (79-100); MONO % 11 % (0-9); NEUT % 67 % (31-73); PLATELET COUNT 315 x10^3/uL (140-400); RED BLOOD COUNT 3.95 x10^6/uL (3.50-5.40); RED CELL DISTRIBUTION WIDTH 25.3 % (11.5-14.5); WHITE BLOOD COUNT 8.4 x10^3/uL (4.0-11.0)
[2017-02-15 07:07] VITALS: BP 114/73
--- NOTE | 2017-02-15 07:49 | PDOC ---
SURGICAL PROGRESS NOTE Subjective Pt. feeling well. Pain controlled. Pt. tolerating liquids. Encourage ambulation. Vital Signs Vital Signs Date Time Temp Pulse Resp B/P (MAP) Pulse Ox O2 Delivery O2 Flow Rate FiO2 02/15/17 07:07 98.4 78 16 114/73 (87) 98.4 02/14/17 22:29 Room Air 02/14/17 17:15 99 02/14/17 10:25 10 I&O Intake and Output 02/16/17 07:00 Intake Total 300 ml Output Total 600 ml Balance -300 ml Intake Oral 300 ml Output Urine Total 600 ml PATIENT HAS A BOLTON: No General: Alert, Oriented X3, Cooperative HEENT: Atraumatic Lungs: Clear to auscultation Heart: Regular rate Abdomen: Normal bowel sounds, Soft, No tenderness, No masses Extremities: No edema Psych/Mental Status: Mental status NL Labs Laboratory Tests Test 02/14/17 06:35 02/14/17 06:40 02/15/17 05:00 Urine Test Negative (NEG) White Blood Count 4.7 x10^3/uL (4.0-11.0) 8.4 x10^3/uL (4.0-11.0) Red Blood Count 4.55 x10^6/uL (3.50-5.40) 3.95 x10^6/uL (3.50-5.40) Hemoglobin 11.7 g/dL (12.0-15.5) 10.0 g/dL (12.0-15.5) Hematocrit 36.6 % (36.0-47.0) 31.1 % (36.0-47.0) Mean Corpuscular Volume 81 fL (79-100) 79 fL (79-100) Mean Corpuscular Hemoglobin 26 pg (25-35) 25 pg (25-35) Mean Corpuscular Hemoglobin Concent 32 g/dL (31-37) 32 g/dL (31-37) Red Cell Distribution Width 25.5 % (11.5-14.5) 25.3 % (11.5-14.5) Platelet Count 316 x10^3/uL (140-400) 315 x10^3/uL (140-400) Neutrophils (%) (Auto) 45 % (31-73) 67 % (31-73) Lymphocytes (%) (Auto) 40 % (24-48) 22 % (24-48) Monocytes (%) (Auto) 11 % (0-9) 11 % (0-9) Eosinophils (%) (Auto) 3 % (0-3) 0 % (0-3) Basophils (%) (Auto) 1 % (0-3) 0 % (0-3) Neutrophils # (Auto) 2.1 x10^3uL (1.8-7.7) 5.6 x10^3uL (1.8-7.7) Lymphocytes # (Auto) 1.9 x10^3/uL (1.0-4.8) 1.9 x10^3/uL (1.0-4.8) Monocytes # (Auto) 0.5 x10^3/uL (0.0-1.1) 0.9 x10^3/uL (0.0-1.1) Eosinophils # (Auto) 0.1 x10^3/uL (0.0-0.7) 0.0 x10^3/uL (0.0-0.7) Basophils # (Auto) 0.0 x10^3/uL (0.0-0.2) 0.0 x10^3/uL (0.0-0.2) Platelet Estimate Adequate (ADEQUATE) Anisocytosis Mod Laboratory Tests Test 02/15/17 05:00 White Blood Count 8.4 x10^3/uL (4.0-11.0) Red Blood Count 3.95 x10^6/uL (3.50-5.40) Hemoglobin 10.0 g/dL (12.0-15.5) Hematocrit 31.1 % (36.0-47.0) Mean Corpuscular Volume 79 fL (79-100) Mean Corpuscular Hemoglobin 25 pg (25-35) Mean Corpuscular Hemoglobin Concent 32 g/dL (31-37) Red Cell Distribution Width 25.3 % (11.5-14.5) Platelet Count 315 x10^3/uL (140-400) Neutrophils (%) (Auto) 67 % (31-73) Lymphocytes (%) (Auto) 22 % (24-48) Monocytes (%) (Auto) 11 % (0-9) Eosinophils (%) (Auto) 0 % (0-3) Basophils (%) (Auto) 0 % (0-3) Neutrophils # (Auto) 5.6 x10^3uL (1.8-7.7) Lymphocytes # (Auto) 1.9 x10^3/uL (1.0-4.8) Monocytes # (Auto) 0.9 x10^3/uL (0.0-1.1) Eosinophils # (Auto) 0.0 x10^3/uL (0.0-0.7) Basophils # (Auto) 0.0 x10^3/uL (0.0-0.2) Assessment/Plan A: POD#1 s/p TLH & RSO P: D/c home. Problems: LALA GRANGER Jr, MD Feb 15, 2017 07:49
--- NOTE | 2017-02-15 07:54 | DISCH ---
DISCHARGE INSTRUCTIONS Condition on Discharge Condition on Discharge: Stable Activity After Discharge Activity Instructions for Disc: Activity as tolerated Lifting Instructions after Dis: No heavy lifting Driving Instructions after Dis: No driving for 2 weeks Diet after Discharge Diet after Discharge: Regular Contacting the DRVíctor after DC Call your doctor for: Concerns you may have Follow-Up Follow up with: Dr. Middleton in 2 weeks. LALA MIDDLETON Jr, MD Feb 15, 2017 07:54
[2017-02-15] MEDS ORDERED: HYDR-2758 PO (07:56)
[2017-02-15] MEDS ORDERED: IBUP-1060 PO (07:56)
[2017-02-15] MEDS ORDERED: DOCU-109 PO (07:56)
--- NOTE | 2017-02-15 16:41 | PATHOLOGY ---
PATHOLOGY REPORT * * * * * * * * FINAL DIAGNOSIS: Uterus and attached right fallopian tube and ovary, robotic laparoscopic total hysterectomy with right salpingo-oophorectomy: - Adenomyosis, uterine corpus, with myometrial hypertrophy (uterine weight 169 grams). - Chronic inflammation of ectocervix, focal. - Chronic cervicitis with focal squamous metaplasia. - Nabothian cysts, cervix, small. - Inactive/weakly proliferative endometrium with focal polypoid endometrium showing stromal decidualization. 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 - Congestion of right fallopian tube and ovary. - Right paratubal cysts. - Follicle cyst of right ovary. (JPM:viktor; 02/15/2017) COMMENT: There is no evidence of malignancy. REPORT ELECTRONICALLY SIGNED BY: Thad Westbrook M.D. DATE/TIME: 02/15/2017 16:40 * * * * * * * * GROSS PATHOLOGY: The specimen is received in formalin, labeled "Braulio Elisabet and uterus, cervix, right fallopian tube and ovary is a 169 g uterus/cervix with attached right ovary and fallopian tube. The uterus measures 9.5 cm S-I, 7.0 cm cornu-cornu and 5.5 cm A-P. The uterine serosa is smooth to roughened, glistening, villagomez-pink, and markedly hemorrhagic. The ectocervical mucosa is glistening and hyperemic. The external os is patent. The endocervical canal is glistening and villagomez. There are a few mucous filled cysts identified measuring up to 0.3 cm in diameter. The endometrial cavity measures of 4.7 x 2.6 cm and demonstrates a ragged villagomez and red endometrium with an average thickness of 0.2 cm. There are also multiple probable polyps (questionable "shredded" endometrium at time of bivalving) identified in the fundus, measuring 2 cm in greatest aggregate dimension. The myometrium ranges in thickness from 1.8 cm-2.3 cm and demonstrates a few whorled white nodules range in size from 0.3 cm-0.6 cm in greatest dimension. Also identified are marked areas of trabeculation, suspicious for adenomyosis (30%). The villagomez and red maroon right ovary measures 3.7 x 2.6 x 1.8 cm and the contiguous dark maroon fimbriated right fallopian tube measures 4.7 x 1.0 cm. The fallopian tube appears to be previously ligated. Protruding from one surface of the ovary is a 2.7 cm cortical cyst containing serous clear fluid. The wall of the cyst is thin. The lining is smooth. The ovarian parenchyma is rubbery and villagomez and hemorrhagic. Sectioning the fallopian tube reveals no mucosal lesions. There is a 1.2 cm fluid filled cyst within the mesoovarian tissue. Also within the specimen container is a fimbriated red maroon fallopian tube measuring 2.6 cm in length with an average diameter 0.9 cm. There is a 0.7 cm paratubal cyst attached to the fimbriated end. Sectioning reveals no mucosal lesions. A anterior cervix A2 posterior cervix A3-A5 anterior endomyometrium A6 anterior CLAUDETTE A7-A10 posterior endomyometrium A11 posterior CLAUDETTE A12 intramural nodule, insurance claim representative A13-A14 right ovary A15 right fallopian tube A16 fimbriated tube within container (FELICIA; 02/14/2017) INITIAL CPT CODE(S): A; 05825 Professional services performed by [facility] [place] [place] [address] Technical services performed by [facility] at [address] [place] [address], [facility] [address], [place] [address]. Dr. Urban Cadet fax: SPECIMEN(S) RECEIVED: A.Uterus, cervix, right fallopian tube CLINICAL HISTORY: Dyspareunia, menorrhagia PATIENT: ELISABET BERMEO /AGE: 9 1980 (Age: 37) PATIENT #: [id number] ALT CASE #: SPECIMEN COLLECTION DATE: 02/14/2017 SPECIMEN RECEIVED DATE: 02/14/2017 [facility] - [address] [place] [address] - PHONE: [phone] * * * END OF REPORT * * *
== END 2017-02-15 12:15 | disposition home or self-care (01) ==
LOC: SURG 06:16 → 3 NORTH 10:30
PROVIDERS: ADMIT Obstetrics & Gynecology; ATTEND Obstetrics & Gynecology
DX: N94.6 Dysmenorrhea, unspecified (principal); N92.0 Excessive and frequent menstruation with regular cycle; N83.201 Unspecified ovarian cyst, right side; D25.9 Leiomyoma of uterus, unspecified
CPT/HCPCS: 36415; 58571; 81025; 85025; 86850; 86900; 86901; 88307; 96374; A4215; G0378; G0379; J0330; J0690; J1100; J1170; J1885; J2405; J2704; J2710; J3010; J3490; J7030; J7120; S2900; J2001

== ENCOUNTER 2017-03-06 16:10 | Emergency (ER) | payer OTHER ==
[~2017-03-06] VITALS: Ht 170.2 cm; Wt 88.9 kg
[~2017-03-06 16:10] MED LIST changes: -BUPIVACAINE-EPI 0.25%-1:200000 MPF 30 ML VIAL. ONE; +DOCU-109 PO; -ESTROGENS, CONJ VAGINAL CREAM 30GM TUBE. ONE; +HYDR-2758 PO; +IBUP-1060 PO; -LIDOCAINE 1%/EPI 1:100,000 20 ML VIAL. ONE; -SURGICEL HEMOSTAT 4X8 EACH. ONE
[2017-03-06 16:26] VITALS: BP 137/90
--- NOTE | 2017-03-06 16:40 | PHYS DOC ---
Past Medical History Past Medical History: Anemia, Hypertension, IBS Additional Past Medical Histor: PCOS Past Surgical History: Cholecystectomy, Hysterectomy, Tubal ligation Alcohol Use: Occasionally Drug Use: None Adult General Chief Complaint Chief Complaint: VAGINAL BLEEDING HPI HPI Patient is a 37 year old female presents to the emergency department with complaints of vaginal bleeding status post hysterectomy. Patient states she had a hysterectomy on February 14. She states one week ago today she was evaluated by Dr. Middleton complaint of vaginal bleeding. She states at that time she was advised she would be finished bleeding in one week. Patient states she continues to have bleeding, not saturating pads but persistent bright red blood. Patient states she is very frustrated as others have told her they did not bleed after the hysterectomy. Patient's concerned she may have a secondary condition. She denies chest pain, headache, lightheadedness, nausea, vomiting. She denies abdominal pain. Review of Systems Review of Systems Constitutional: Denies fever or chills [] Eyes: Denies change in visual acuity, redness, or eye pain [] HENT: Denies nasal congestion or sore throat [] Respiratory: Denies cough or shortness of breath [] Cardiovascular: No additional information not addressed in HPI [] GI: Denies abdominal pain, nausea, vomiting, bloody stools or diarrhea [] : Denies dysuria or hematuria, vaginal bleeding [] Musculoskeletal: Denies back pain or joint pain [] Integument: Denies rash or skin lesions [] Neurologic: Denies headache, focal weakness or sensory changes [] Endocrine: Denies polyuria or polydipsia [] Allergies Allergies Allergies Coded Allergies Type Severity Reaction Last Updated Verified No Known Drug Allergies 02/14/17 No Physical Exam Physical Exam Constitutional: Well developed, well nourished, no acute distress, non-toxic appearance. [] HENT: Normocephalic, atraumatic, bilateral external ears normal, oropharynx moist, no oral exudates, nose normal. [] Eyes: PERRLA, EOMI, conjunctiva normal, no discharge. [] Neck: Normal range of motion, no tenderness, supple, no stridor. [] Cardiovascular:Heart rate regular rhythm, no murmur [] Lungs & Thorax: Bilateral breath sounds clear to auscultation [] Abdomen: Bowel sounds normal, soft, no tenderness, no masses, no pulsatile masses. : External genitalia within normal limits. Vaginal exam unremarkable with minimal serosanguineous discharge. No elijah bleeding. There is no erythema. Pelvic exam nontender.[] Skin: Warm, dry, no erythema, no rash. [] Back: No tenderness, no CVA tenderness. [] Extremities: No tenderness, no cyanosis, no clubbing, ROM intact, no edema. [] Neurologic: Alert and oriented X 3, normal motor function, normal sensory function, no focal deficits noted. [] Psychologic: Affect normal, judgement normal, mood normal. [] Current Patient Data Vital Signs Vital Signs Date Time Temp Pulse Resp B/P (MAP) Pulse Ox O2 Delivery O2 Flow Rate FiO2 03/06/17 16:26 98.6 89 18 137/90 (106) 96 Room Air 98.6 Lab Values Laboratory Tests Test 03/06/17 16:45 White Blood Count 7.4 x10^3/uL (4.0-11.0) Red Blood Count 4.37 x10^6/uL (3.50-5.40) Hemoglobin 11.4 g/dL (12.0-15.5) L Hematocrit 35.3 % (36.0-47.0) L Mean Corpuscular Volume 81 fL (79-100) Mean Corpuscular Hemoglobin 26 pg (25-35) Mean Corpuscular Hemoglobin Concent 32 g/dL (31-37) Red Cell Distribution Width 20.0 % (11.5-14.5) H Platelet Count 321 x10^3/uL (140-400) Neutrophils (%) (Auto) 25 % (31-73) L Lymphocytes (%) (Auto) 51 % (24-48) H Monocytes (%) (Auto) 7 % (0-9) Eosinophils (%) (Auto) 17 % (0-3) H Basophils (%) (Auto) 1 % (0-3) Neutrophils # (Auto) 1.8 x10^3uL (1.8-7.7) Lymphocytes # (Auto) 3.8 x10^3/uL (1.0-4.8) Monocytes # (Auto) 0.5 x10^3/uL (0.0-1.1) Eosinophils # (Auto) 1.2 x10^3/uL (0.0-0.7) H Basophils # (Auto) 0.1 x10^3/uL (0.0-0.2) Laboratory Tests 03/06/17 16:45 EKG EKG [] Radiology/Procedures Radiology/Procedures [] Course & Med Decision Making Course & Med Decision Making Pertinent Labs and Imaging studies reviewed. (See chart for details) []Patient's hemoglobin one-day postop was 10. Today she is 11.4. Clinically there is no indication of abnormal vaginal bleeding. Vaginal exam was unremarkable. Patient will be discharged home with plan to follow-up Dr. Middleton. She is advised to call the office tomorrow for further follow-up. Dragon Disclaimer Dragon Disclaimer This electronic medical record was generated, in whole or in part, using a voice recognition dictation system. Departure Departure Impression: Primary Impression: Postoperative vaginal bleeding Disposition: 01 HOME, SELF-CARE Condition: STABLE Referrals: KATALINA CHAN (PCP) LALA MIDDLETON Jr, MD Patient Instructions: Pelvic Exam Additional Instructions: All of but Dr. Middleton, call tomorrow for an appointment. HUMZA WILSON APRN Mar 06, 2017 16:40
[2017-03-06 17:01] LABS: BASO # 0.1 x10^3/uL (0.0-0.2); BASO % 1 % (0-3); EOS % 17 % (0-3); HEMATOCRIT 35.3 % (36.0-47.0); HEMOGLOBIN 11.4 g/dL (12.0-15.5); LYMPH # 3.8 x10^3/uL (1.0-4.8); LYMPH % 51 % (24-48); MEAN CORPUSCULAR HEMOGLOBIN 26 pg (25-35); MEAN CORPUSCULAR HGB CONC 32 g/dL (31-37); MEAN CORPUSCULAR VOLUME 81 fL (79-100); MONO % 7 % (0-9); NEUT % 25 % (31-73); PLATELET COUNT 321 x10^3/uL (140-400); RED BLOOD COUNT 4.37 x10^6/uL (3.50-5.40); WHITE BLOOD COUNT 7.4 x10^3/uL (4.0-11.0)
[2017-03-06 17:17] LABS: CALCIUM 9.2 mg/dL (8.5-10.1); CREATININE 0.8 mg/dL (0.6-1.0); GFR 97.7; POTASSIUM 3.8 mmol/L (3.5-5.1)
[2017-03-06 17:18] LABS: ALBUMIN 3.5 g/dL (3.4-5.0); ALBUMIN/GLOBULIN RATIO 0.8 (1.0-1.7); TOTAL BILIRUBIN 0.4 mg/dL (0.2-1.0); TOTAL PROTEIN 8.1 g/dL (6.4-8.2)
[2017-03-06 17:20] LABS: ANISOCYTOSIS SLIGHT; PLT ESTIMATE ADEQUATE (ADEQUATE); POIKILOCYTOSIS SLIGHT
[2017-03-06 17:21] LABS: OVALOCYTES FEW; TEAR DROP CELLS OCC
== END 2017-03-06 17:22 | disposition home or self-care (01) ==
LOC: ER 16:10
DX: N99.820 Postprocedural hemorrhage of a genitourinary system organ or structure following a genitourinary system procedure (principal); N93.9 Abnormal uterine and vaginal bleeding, unspecified; K58.9 Irritable bowel syndrome, unspecified; I10 Essential (primary) hypertension; E28.2 Polycystic ovarian syndrome; Z86.2 Personal history of diseases of the blood and blood-forming organs and certain disorders involving the immune mechanism; Z98.890 Other specified postprocedural states; Z90.49 Acquired absence of other specified parts of digestive tract; Z98.51 Tubal ligation status
CPT/HCPCS: 36415; 80053; 85025; 99284

== ENCOUNTER 2020-08-26 08:37 | Emergency (ER) | payer BC ==
[~2020-08-26] VITALS: Ht 172.7 cm; Wt 97.8 kg
[~2020-08-26 08:37] MED LIST changes: +AMLO-186 PO; -AMLO5TAB2 PO; -HYDR-2758 PO; +HYDR-2761 PO; +OSEL75CA PO; -OXYC-323 PO; +OXYC1TAB15 PO
--- NOTE | 2020-08-26 09:22 | PHYS DOC ---
Past Medical History Past Medical History: Anemia, Hypertension, IBS Additional Past Medical Histor: PCOS Past Surgical History: Cholecystectomy, Hysterectomy, Tubal ligation Smoking Status: Current Every Day Smoker Alcohol Use: Occasionally Drug Use: None General Adult EDM: Chief Complaint: HEADACHE HPI: HPI: This is a pleasant 40-year-old female who presents emergency department today with a headache. Her headache started 2 days ago. It was associated with numbness throughout her hands and on the left side of her arm and leg. Last kno wn well was August 24. Her headache is a throbbing aching pain. Headache was not sudden onset and took more than 1 hour to reach maximal intensity. No recent head injury. She has been checking her blood pressure throughout the night and it has been elevated into the 150s and 160s. She denies any vomiting or chest pain over the past few days however here she had a brief episode of chest pain that was sharp nonradiating and without alleviating factors. Review of systems is negative for fevers rash abdominal pain vomiting diarrhea. Positive for headache positive for brief chest pain. Positive for numbness in the hands. All other review of system negative ED course: 40-year-old female presenting with a headache. On arrival EKG was obtained which shows sinus rhythm with a regular rate. ST segments congruent. Not suggestive of acute ischemia. Head CT and head and neck angiography are unremarkable. Blood work unremarkable. Patient was given IV fluids Reglan and Benadryl. On reexamination the patient is feeling much better. Reexamination of the patient's neurologic function shows a normal neurologic exam. We will discharge the patient to follow-up with PCP today or tomorrow. The patient has been examined and was not found to have an emergency medical condition. The patient was then discharged home in stable condition to follow up with their primary care physician over the next 1-2 days. They were to return if their symptoms worsened or if they were concerned for any reason. They were also instructed to return to the emergency department if they were unable to get the recommended and appropriate follow-up. [id number] discharge instructions and return precautions were given. Patient's questions were answered to their satisfaction. Patient is comfortable with plan. Final physical examination: At approximately 11:20 AM Physical exam: Constitutional no acute distress, resting comfortably in examination room HEENT. Head normocephalic and atraumatic, pupils equal round and reactive to light, extraocular movements intact, no scleral icterus or erythema, mucous membranes moist CV: Palpable pulse with a nl rate and regular rhythm. Respiratory: Not in any respiratory distress breathing comfortably Abdomen: Soft nontender without rebound tenderness or guarding. Negative mcburney's point. Negative Szymanski sign. Nondistended. extremities: NVI, nontender with nl rom of the joints. no deformities. Skin: Normal color. no rash. Psych: Makes eye contact, affect congruent with mood Neuro exam: Mental status: Awake oriented and alert x3 Cranial nerves: Extraocular movements intact, eyebrows antony bilaterally, smile symmetric, uvula elevation nl, shoulder shrug intact bilaterally, tongue protrusion normal Clear speech. Normal [id number]. Sensation: equal and normal in all extremities Strength: 5/5 in upper and lower extremities bilaterally Review of Systems: Review of Systems: Constitutional: Denies fever or chills. [] Eyes: Denies change in visual acuity. [] HENT: Denies nasal congestion or sore throat. [] Respiratory: Denies cough or shortness of breath. [] Cardiovascular: Denies chest pain or edema. [] GI: Denies abdominal pain, nausea, vomiting, bloody stools or diarrhea. [] : Denies dysuria. [] Musculoskeletal: Denies back pain or joint pain. [] Integument: Denies rash. [] Neurologic: Denies headache, focal weakness or sensory changes. [] Endocrine: Denies polyuria or polydipsia. [] Lymphatic: Denies swollen glands. [] Psychiatric: Denies depression or anxiety. [] Heart Score: C/O Chest Pain: No Risk Factors: Risk Factors: DM, Current or recent (<one month) smoker, HTN, HLP, family history of CAD, obesity. Risk Scores: Score 0 - 3: 2.5% MACE over next 6 weeks - Discharge Home Score 4 - 6: 20.3% MACE over next 6 weeks - Admit for Clinical Observation Score 7 - 10: 72.7% MACE over next 6 weeks - Early Invasive Strategies Allergies: Allergies: Allergies Coded Allergies Type Severity Reaction Last Updated Verified No Known Drug Allergies 02/14/17 No Physical Exam: PE: Constitutional: Well developed, well nourished, no acute distress, non-toxic appearance. [] HENT: Normocephalic, atraumatic, bilateral external ears normal, oropharynx moist, no oral exudates, nose normal. [] Eyes: PERRLA, EOMI, conjunctiva normal, no discharge. [] Neck: Normal range of motion, no tenderness, supple, no stridor. [] Cardiovascular:Heart rate regular rhythm, no murmur [] Lungs & Thorax: Bilateral breath sounds clear to auscultation [] Abdomen: Bowel sounds normal, soft, no tenderness, no masses, no pulsatile masses. [] Skin: Warm, dry, no erythema, no rash. [] Back: No tenderness, no CVA tenderness. [] Extremities: No tenderness, no cyanosis, no clubbing, ROM intact, no edema. [] Neurologic: Alert and oriented X 3, normal motor function, normal sensory function, no focal deficits noted. [] Psychologic: Affect normal, judgement normal, mood normal. [] Current Patient Data: Vital Signs: Vital Signs Date Time Temp Pulse Resp B/P (MAP) Pulse Ox O2 Delivery O2 Flow Rate FiO2 08/26/20 09:01 98.3 72 18 153/95 (114) 99 Room Air 98.3 EKG: EKG: [] Radiology/Procedures: Radiology/Procedures: [] Course & Med Decision Making: Course & Med Decision Making Pertinent Labs and Imaging studies reviewed. (See chart for details) [] Dragon Disclaimer: Dragon Disclaimer: This electronic medical record was generated, in whole or in part, using a voice recognition dictation system. Departure Departure Impression: Primary Impression: Headache Additional Impression: Hypertension Disposition: HOME / SELF CARE / HOMELESS Condition: STABLE Referrals: NO PCP (PCP) Patient Instructions: General Headache Without Cause Additional Instructions: EMERGENCY DEPARTMENT GENERAL DISCHARGE INSTRUCTIONS Follow-up with your primary physician in 1 to 2 days. Return to the emergency department if you have any new or concerning findings. Thank you for coming to [facility] Emergency Department (ED) today and trusting us with you care. We trust that you had a positive experience in our Emergency Department. If you wish to speak to the department management, you may call the Director at [phone]. Follow up is important in emergency/acute care visits. This condition should be evaluated by your primary care physician and any necessary consulting services for continued management within a few days (1-2) after discharge. Return to the emergency department if you have any new or concerning symptoms including but not limited to fever, chills, nausea, vomiting, intractable pain, any new rashes, chest pain, shortness of breath, uncontrolled bleeding, difficulty breathing, and/or vision loss. 1. Do you have a private Doctor? If you do not have a private doctor, please ask for a resource list of physicians or clinics that may be able to assist you with follow up care. 2. If a lab test or culture has been done and does not come back immediately, your results will be reviewed and you will be notified if you need a change in treatment. 3. Your care today has been supervised by a physician who is specially trained in emergency care. Many problems require more than one evaluation for a complete diagnosis and treatment. We recommend that you schedule your follow up appointment as recommended to ensure complete treatment of you illness or injury. If you are unable to obtain follow up care and continue to have a problem, or if your condition worsens, we recommend that you return to the ED. 4. We are not able to safely determine your condition over the phone nor are we able to give sound medical advice over the phone. For these safety reasons, if you call for medical advice we will ask you to come to the ED for further evaluation. IF YOUR SYMPTOMS WORSEN OR NEW SYMPTOMS DEVELOP, OR YOU HAVE CONCERNS ABOUT YOUR CONDITION; OR IF YOUR CONDITION WORSENS WHILE YOU ARE WAITING FOR YOUR FOLLOW UP APPOINTMENT; EITHER CONTACT YOUR PRIMARY CARE DOCTOR, THE PHYSICIAN WHOSE NAME AND NUMBER YOU WERE GIVEN, OR RETURN TO THE ED IMMEDIATELY. NIHSS Stroke Scale NIH Stroke Scale: NIH Stroke Scale Response (Comments) Value Level of Consciousness: 0 Alert/Responsive 0 LOC Questions: 0 Answers both correctly 0 LOC Commands: 0 Performs both tasks 0 Best Gaze: 0 Normal 0 Visual: 0 No visual loss 0 Facial Palsy: 0 Normal, symmetrical 0 Motor - Left Arm 0 No drift 0 Motor - Right Arm 0 No drift 0 Motor - Left Leg 0 No drift 0 Motor: Right Leg 0 No drift 0 Limb Ataxia: 0 Absent 0 Sensory: 1 Mid to moderate loss (INITIAL) 1 Best Language: 0 Normal 0 Dysathria: 0 Normal 0 Extinction and Inattention: 0 Normal (at 910AM) 0 Total 1 NIHSS Stroke Scale NIH Stroke Scale: NIH Stroke Scale Response (Comments) Value Level of Consciousness: 0 Alert/Responsive 0 LOC Questions: 0 Answers both correctly 0 LOC Commands: 0 Performs both tasks 0 Best Gaze: 0 Normal 0 Visual: 0 No visual loss 0 Facial Palsy: 0 Normal, symmetrical 0 Motor - Left Arm 0 No drift 0 Motor - Right Arm 0 No drift 0 Motor - Left Leg 0 No drift 0 Motor: Right Leg 0 No drift 0 Limb Ataxia: 0 Absent 0 Sensory: 0 No loss 0 Best Language: 0 Normal 0 Dysathria: 0 Normal 0 Extinction and Inattention: 0 Normal (AT 1120am) 0 Total 0 GRAYSON BECKER MD Aug 26, 2020 09:22
[2020-08-26] MEDS ORDERED: METOCLOPRAMIDE HCL 10 MG/2 ML VIAL. IV ONE (09:30)
[2020-08-26] MEDS ORDERED: diphenhydrAMINE 50 MG/ML VIAL IVP ONE ×2 (09:30→09:45)
[2020-08-26] MEDS ORDERED: IV NORMAL SALINE 1000ML BAG 1,000 ML IV ONE (09:30)
[2020-08-26 09:43] LABS: BASO % 0 % (0-3); EOS # 0.1 x10^3/uL (0.0-0.7); EOS % 3 % (0-3); HEMATOCRIT 40.6 % (36.0-47.0); HEMOGLOBIN 13.7 g/dL (12.0-15.5); LYMPH # 2.5 x10^3/uL (1.0-4.8); LYMPH % 51 % (24-48); MEAN CORPUSCULAR HEMOGLOBIN 30 pg (25-35); MEAN CORPUSCULAR HGB CONC 34 g/dL (31-37); MEAN CORPUSCULAR VOLUME 88 fL (79-100); MONO # 0.4 x10^3/uL (0.0-1.1); MONO % 8 % (0-9); NEUT # 1.9 x10^3/uL (1.8-7.7); NEUT % 38 % (31-73); PLATELET COUNT 276 x10^3/uL (140-400); RED BLOOD COUNT 4.59 x10^6/uL (3.50-5.40); RED CELL DISTRIBUTION WIDTH 13.1 % (11.5-14.5)
[2020-08-26] MEDS ORDERED: METOCLOPRAMIDE 10 MG TABLET. PO ONE (09:45)
[2020-08-26 09:46] LABS: CALCIUM 9.1 mg/dL (8.5-10.1); CREATININE 0.9 mg/dL (0.6-1.0); GFR 83.9; POTASSIUM 4.1 mmol/L (3.5-5.1)
[2020-08-26 09:52] LABS: DIRECT BILIRUBIN 0.2 mg/dL (0.0-0.2); TOTAL BILIRUBIN 1.1 mg/dL (0.2-1.0); TOTAL PROTEIN 8.1 g/dL (6.4-8.2)
[2020-08-26] MEDS ORDERED: IOHEXOL 300 MG/ML 100ML VIAL. IV ONE (10:00)
[2020-08-26] MEDS ORDERED: CONTRAST GIVEN. MC PRN (10:15)
--- NOTE | 2020-08-26 10:33 | EKG ---
[facility] [address] [place] [address] Test Date: 2020-08-26 Test Time: 08:58:19 Pat Name: EVELYNE BERMEO Department: Room: Gender: F Vegetable [employer]her: : 1980 Requested By: GRAYSON BECKER Order Number: [id number] Reading MD: Measurements Intervals [place] Rate: 69 P: 28 [place]: 174 QRS: 25 QRSD: 90 T: 16 QT: 394 QTc: 424 Interpretive Statements SINUS RHYTHM NO SPECIFIC ECG ABNORMALITIES RI6.01 No previous ECG available for comparison
[2020-08-26 10:35] VITALS: BP 119/76
--- NOTE | 2020-08-26 11:05 | RAD ---
STUDY: Noncontrast CT of the head and CT angiography of the head and neck INDICATION: Headache and tingling COMPARISON: None TECHNIQUE: Axial CT imaging of the head and neck utilizing angiography protocol and performed after t he intravenous administration of 75 mL Omnipaque 300 contrast. Precontrast imaging through the head w as performed as well. Multiplanar reformats and 3D MIP acquisitions were obtained. Encountered areas of stenosis are measured per NASCET criteria. One or more of the following individualized dose reduction techniques were utilized for this examinat ion: 1. Automated exposure control 2. Adjustment of the mA and/or kV according to patient size 3. Use of iterative reconstruction technique. FINDINGS: CT HEAD: The ventricles and sulci are normal. Hart-white matter differentiation is maintained. No intracranial hemorrhage, or acute infarct. Prominent CSF space versus arachnoid cyst along the posterior medial l eft cerebellar hemisphere. Skull and scalp are intact. Paranasal sinuses and mastoid air cells are cl ear. Globes and orbits are intact. CTA NECK: Arch/Proximal Great Vessels: Bovine configuration of the arch. Great vessel origins are widely patent . Carotid Bifurcation/Cervical ICA: Common arteries, internal carotid arteries, and external carotid ar teries are normal. Vertebral Arteries: Vertebral arteries are normal. CTA HEAD: Posterior Circulation: Basilar artery, superior cerebellar arteries, and posterior cerebral arteries are normal. Anterior Circulation: The intracranial internal carotid arteries, middle cerebral arteries, anterior cerebral arteries are normal. Veins: Dural venous sinuses and jugular veins are patent. MISCELLANEOUS: Lung apices are clear. There is cervical kyphosis centered at C5-C6. Mild degenerative disc disease a t C5-C6. Prevertebral soft tissues normal. IMPRESSION: 1. No acute intracranial abnormality 2. Normal CTA of the head and neck. Electronically signed by: Amalia Cheek MD (08/26/2020 11:02 AM) [id number]
== END 2020-08-26 11:39 | disposition home or self-care (01) ==
LOC: ER 08:37
DX: I10 Essential (primary) hypertension (principal); R51.9 Headache, unspecified; R20.2 Paresthesia of skin; D64.9 Anemia, unspecified; F17.200 Nicotine dependence, unspecified, uncomplicated; Z90.49 Acquired absence of other specified parts of digestive tract; Z90.710 Acquired absence of both cervix and uterus; Z98.51 Tubal ligation status
CPT/HCPCS: 36415; 70450; 70496; 70498; 80048; 80076; 83690; 84484; 85025; 93005; 96361; 96374; 96375; 99285; J1200; J2765; J7030; Q9967